=== PATIENT | male | born 1970 | race African-American/Black ===

== ENCOUNTER 2016-11-07 07:45 | Observation (INO) | payer BC ==
[~2016-11-07] VITALS: Ht 167.6 cm; Wt 71.3 kg
[2016-11-07] VITALS (7 sets, daily range): BP systolic 139–177; BP diastolic 63–109; PULSE 73–92; TEMP 36.7–37; O2SAT 96–99; Ht 167.6 cm; Wt 71.3 kg
[~2016-11-07 07:45] MED LIST: CYAN100020 PO; MULT-506 PO; OMEP40CA41 PO
[2016-11-07] MEDS ORDERED: ASPIRIN 81 MG CHEW PO STA (08:01)
[2016-11-07] MEDS ORDERED: NITROGLYCERIN OINT 2% 1GM PACKET EXT STA (08:01)
--- NOTE | 2016-11-07 08:08 | EMERGENCY ROOM VISIT NOTE ---
History Report prepared by Kimi: Jaida Rivera Under the Supervision of: Dr. Dieter Dias M.D. First contact with patient: 07:50 Chief Complaint: CHEST PAIN Stated Complaint: CHEST PAIN History of Present Illness The patient is a 45 year old male who presents to the Emergency Room with complaints of intermittent left sided chest pain starting a few weeks ago. He states that it feels as though "there is a spot" in his back located directly behind the chest pain. He also reports intermittent diaphoresis. 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 He has worsening pain with lifting. He does not have any worsening pain with palpation. Most of the time, the pain is relieved with resting. He currently denies any pain. He denies abdominal pain, or any other complaints. He did not take any aspirin today. He does not take any hypertension medications. He denies any history of diabetes. He is adopted and is unsure of any family history of heart disease. The patient does not regularly follow up with his PCP. The last time he was evaluated by his PCP was about 3-4 years ago. He has been smoking for the past 33 years. He smokes about a pack a day. Source of History: patient Onset: a few weeks ago Position: chest (left) Symptom Intensity: No pain currently Timing: intermittent Modifying Factors (Worsening): other (lifting) Modifying Factors (Relieving): rest Associated Symptoms: + diaphoresis, No abdominal pain Review of Systems See HPI for pertinent positives & negatives. A total of 10 systems reviewed and were otherwise negative. Past Medical & Surgical Medical Problems: (1) Abdominal pain (2) Back pain (3) Hyperlipidemia Nec/Nos (4) Pure Hypercholesterolem (5) Pure Hyperglyceridemia Family History Not obtainable due to adoption Social History Smoking Status: Current Every Day Smoker Alcohol Use: occasionally Marital Status: single Occupation Status: employed Current/Historical Medications Scheduled Multivitamin (Multivitamin), 1 TAB PO DAILY Naproxen (Aleve), 220 MG PO DIRECTED Allergies Coded Allergies: No Known Allergies (Unverified , 11/07/16) Physical Exam Vital Signs Date Time Temp Pulse Resp B/P (MAP) Pulse Ox O2 Delivery O2 Flow Rate FiO2 11/07/16 09:32 102 14 153/107 99 Room Air 11/07/16 08:22 95 13 157/123 99 Room Air 11/07/16 08:11 95 19 203/140 98 Room Air 11/07/16 08:10 98 Room Air 11/07/16 08:10 98 Room Air 11/07/16 07:56 107 11/07/16 07:54 36.9 116 25 203/140 100 Room Air 11/07/16 07:54 100 Room Air Physical Exam GENERAL: Patient is a healthy-appearing well-nourished HEAD: Normocephalic atraumatic EYES: Ocular movements intact pupils equal and react to light OROPHARYNX mucous membranes are moist no exudates present no erythema or edema present NECK: Supple no nuchal rigidity CHEST: Good equal expansion. Grossly hypertensive. LUNGS: Clear and equal to auscultation CARDIAC: Normal S1 and S2 ABDOMEN: Soft nontender no guarding BACK: No CVA tenderness EXTREMITIES: No pain upon palpation normal muscle strength in all groups no clubbing cyanosis or edema NEURO: Patient is following commands and answering questions appropriately. Alert and oriented x3 Cranial Nerves 2-12 grossly intact Medical Decision & Procedures ER Provider Diagnostic Interpretation: X-ray results as stated below per interpretation by me and the radiologist: CHEST ONE VIEW PORTABLE CLINICAL HISTORY: 45 years-old Male presenting with CHEST PAIN. TECHNIQUE: Portable upright AP view of the chest was obtained. COMPARISON: 09/27/2014. FINDINGS: Cardiomediastinal silhouette normal. Lungs and pleural spaces clear. Osseous structures and upper abdomen normal. IMPRESSION: 1. No acute cardiopulmonary disease. Electronically signed by: Tim Whitaker 11/07/2016 8:19 AM Dictated Date/Time: 11/07/2016 8:18 AM Laboratory Results 11/07/16 08:00 Red Blood Count 4.59, Mean Corpuscular Volume 95.4, Mean Corpuscular Hemoglobin 33.8, Mean Corpuscular Hemoglobin Concent 35.4, Mean Platelet Volume 9.4, Neutrophils (%) (Auto) 42.0, Lymphocytes (%) (Auto) 44.9, Monocytes (%) (Auto) 8.7, Eosinophils (%) (Auto) 3.3, Basophils (%) (Auto) 0.9, Neutrophils # (Auto) 2.80, Lymphocytes # (Auto) 2.99, Monocytes # (Auto) 0.58, Eosinophils # (Auto) 0.22, Basophils # (Auto) 0.06 11/07/16 08:00 11/07/16 08:50 Test 11/07/16 08:00 11/07/16 08:50 White Blood Count 6.66 K/uL (4.8-10.8) Red Blood Count 4.59 M/uL (4.7-6.1) Hemoglobin 15.5 g/dL (14.0-18.0) Hematocrit 43.8 % (42-52) Mean Corpuscular Volume 95.4 fL (80-100) Mean Corpuscular Hemoglobin 33.8 pg (25-34) Mean Corpuscular Hemoglobin Concent 35.4 g/dl (32-36) Platelet Count 114 K/uL (130-400) Mean Platelet Volume 9.4 fL (7.4-10.4) Neutrophils (%) (Auto) 42.0 % Lymphocytes (%) (Auto) 44.9 % Monocytes (%) (Auto) 8.7 % Eosinophils (%) (Auto) 3.3 % Basophils (%) (Auto) 0.9 % Neutrophils # (Auto) 2.80 K/uL (1.4-6.5) Lymphocytes # (Auto) 2.99 K/uL (1.2-3.4) Monocytes # (Auto) 0.58 K/uL (0.11-0.59) Eosinophils # (Auto) 0.22 K/uL (0-0.5) Basophils # (Auto) 0.06 K/uL (0-0.2) RDW Standard Deviation 43.3 fL (36.4-46.3) RDW Coefficient of Variation 12.4 % (11.5-14.5) Immature Granulocyte % (Auto) 0.2 % Immature Granulocyte # (Auto) 0.01 K/uL (0.00-0.02) D-Dimer 320 ug/L FEU (0-500) Anion Gap 13.0 mmol/L (3-11) Est Creatinine Clear Calc Drug Dose 95.5 ml/min Estimated GFR () 120.5 Estimated GFR (Non- 104.0 BUN/Creatinine Ratio 10.1 (10-20) Calcium Level 9.1 mg/dl (8.5-10.1) Total Bilirubin 0.4 mg/dl (0.2-1) Alanine Aminotransferase (ALT/SGPT) 134 U/L (12-78) Alkaline Phosphatase 91 U/L (45-117) Creatine Kinase MB 1.3 ng/ml (0.5-3.6) Creatine Kinase MB Ratio (0-3.0) Troponin I < 0.015 ng/ml (0-0.045) Total Protein 8.2 gm/dl (6.4-8.2) Albumin 4.2 gm/dl (3.4-5.0) Lipase 236 U/L (73-393) Direct Bilirubin < 0.1 mg/dl (0-0.2) Aspartate Amino Transf (AST/SGOT) 113 U/L (15-37) Total Creatine Kinase 281 U/L (39-308) Labs reviewed by ED physician. Medications Administered Medications (Trade) Dose Ordered Sig/Yung Route Start Time Stop Time Status Last Admin Dose Admin Aspirin (Aspirin Chew) 324 mg NOW STAT PO 11/07/16 08:01 11/07/16 08:03 DC 11/07/16 08:19 324 MG Nitroglycerin (Nitroglycerin 2% Oint) 1 inch NOW STAT EXT 11/07/16 08:01 11/07/16 08:03 DC 11/07/16 08:19 1 INCH ECG Indication: chest pain Rate (beats per minute): 98 Rhythm: sinus rhythm Findings: PVC, no acute ischemic change, prolonged QT Comparison ECG Date: March 06, 2004 Change: no significant change ED Course 0750: Past medical records reviewed. The patient was evaluated in room A10. A complete history and physical examination was performed. 0801: Nitroglycerin 1 inch EXT, Aspirin 324 mg PO 0841: I reevaluated the patient. He denies any changes in his pain but his blood pressure decreased with the Nitro. 0930: Upon reexamination the patient is resting comfortably. I discussed results and treatment plan with the patient. He verbalizes agreement and understanding. I spoke with Dr. Guzman from the [facility] Hospitalist Service. The patient will be evaluated for further management. Medical Decision Differential diagnosis: Etiologies such as cardiac ischemia, aortic dissection, pulmonary embolism, pneumonia, pneumothorax, musculoskeletal, infections, pericarditis, myocarditis , esophageal rupture, gastrointestinal, as well as others were entertained. Medication Reconciliation: I attest that I have personally reviewed the patient' s current medication list Blood Pressure Screening: Patient was found to have an elevated blood pressure and was referred to their primary care doctor for recheck and further treatment History: Slightly suspicious (0) Moderately suspicious (+1) Highly suspicious (+2) EKG: No ST depression but LBBB, LVH, repolarization changes +[address] depression +2 Age: <45 (0) 45-65 (+1) >65 (+2) Risk factors HTN, hypercholesterolemia, DM, obesity (BMI >30 kg/m), smoking, Positive family hx; atherosclerotic disease: prior PR, PCI/CABG, CVA/TIA or peripheral artery disease 1-2 risk factors +1 >3 risk factors: +2 Initial Troponin: 1-2x normal limit:+1 >2 normal limit =2 Clinical Signs and Symptoms of DVT +3 PE Is #1 Diagnosis, or Equally Likely +3 Heart Rate > 100 +1.5 Immobilization at least 3 days, or Surgery in the Previous 4 weeks +1.5 Previous, objectively diagnosed PE or DVT +1.5 Hemoptysis +1 Malignancy w/ Treatment within 6 mo, or palliative +1 Exogenous estrogen This is a 45-year-old male who presents emergency department complaining of chest pain that appears to be exertionally related over the past several weeks. The patient has a history of hypercholesterolemia and is extremely hypertensive upon his presentation to the emergency department. He also smokes a pack a day for the past 30 years. He has a moderately high heart score without knowing his past family history as he is adopted. Based on these findings and the fact that the patient's blood pressure improved dramatically with nitroglycerin I did discuss the case with the hospitalist service. The patient's d-dimer is negative and according to the well's criteria I believe he is low risk for PE. Patient and are in agreement with the treatment plan. Consults Time Called: [phone] Consulting Physician: Dr. Guzman from the [facility] Hospitalist Service Returned Call: [phone] Guzman from the [facility] Hospitalist Service. Impression Primary Impression: Substernal precordial chest pain Additional Impression: Hypertension Scribe Attestation The scribe's documentation has been prepared under my direction and personally reviewed by me in its entirety. I confirm that the note above accurately reflects all work, treatment, procedures, and medical decision making performed by me. Departure Information Dispostion Being Evaluated By Hospitalist Referrals No Doctor, Assigned (PCP) Patient Instructions My [facility] Problem Qualifiers
[2016-11-07] MEDS ORDERED: NAPR1TAB9 PO (08:12)
[2016-11-07 08:13] LABS: BASO % 0.9 %; BASO ABS # 0.06 K/uL (0-0.2); COMPLETE YES; EOS % 3.3 %; HEMATOCRIT 43.8 % (42-52); IG% 0.2 %; LYMPH % 44.9 %; LYMPH ABS # 2.99 K/uL (1.2-3.4); MEAN CELL VOLUME 95.4 fL (80-100); MEAN CORPUSCULAR HEMOGLOBIN 33.8 pg (25-34); MEAN CORPUSCULAR HGB CONC 35.4 g/dl (32-36); MEAN PLATELET VOLUME 9.4 fL (7.4-10.4); MONO % 8.7 %; PLATELET COUNT 114 K/uL (130-400); RED BLOOD COUNT 4.59 M/uL (4.7-6.1); WHITE BLOOD COUNT 6.66 K/uL (4.8-10.8)
[2016-11-07] MEDS ORDERED: NITROGLYCERIN OINT 2% 1GM PACKET ONE (08:16)
--- NOTE | 2016-11-07 08:21 | DIAGNOSTIC IMAGING REPORT ---
CHEST ONE VIEW PORTABLE CLINICAL HISTORY: 45 years-old Male presenting with CHEST PAIN. TECHNIQUE: Portable upright AP view of the chest was obtained. COMPARISON: 09/27/2014. FINDINGS: Cardiomediastinal silhouette normal. Lungs and pleural spaces clear. Osseous structures and upper abdomen normal. IMPRESSION: 1. No acute cardiopulmonary disease. Electronically signed by: Tim Whitaker 11/07/2016 8:19 AM Dictated Date/Time: 11/07/2016 8:18 AM
[2016-11-07 08:45] LABS: ALKALINE PHOSPHATASE 91 U/L (45-117); ALT/SGPT 134 U/L (12-78); BLOOD UREA NITROGEN 9 mg/dl (7-18); BUN/CREATININE RATIO 10.1 (10-20); CALCIUM 9.1 mg/dl (8.5-10.1); CARBON DIOXIDE 22 mmol/L (21-32); CHLORIDE 104 mmol/L (98-107); CREATININE 0.89 mg/dl (0.60-1.40); GLUCOSE 92 mg/dl (70-99); SODIUM 139 mmol/L (136-145)
[2016-11-07 09:21] LABS: POTASSIUM 3.7 mmol/L (3.5-5.1)
[2016-11-07 09:29] LABS: AST/SGOT 113 U/L (15-37)
[2016-11-07] MEDS ORDERED: ATORVASTATIN 40 MG TAB PO STA (10:01)
[2016-11-07] MEDS ORDERED: POTASSIUM CHLORIDE 10 MEQ TABCR PO STA (10:12)
[2016-11-07] MEDS ORDERED: ACETAMINOPHEN 325 MG TAB PO PRN (10:15)
[2016-11-07] MEDS ORDERED: MoRPHine SULFATE 2 MG/ML CARP IV PRN (10:15)
[2016-11-07] MEDS ORDERED: NITROGLYCERIN 0.4 MG SL PER TAB CHARGE SL PRN (10:15)
[2016-11-07 10:25] LABS: INR 0.9 (0.9-1.1)
[2016-11-07] MEDS ORDERED: HEPARIN 25000 UNIT/500 ML D5W ONE (10:29)
[2016-11-07] MEDS ORDERED: HEPARIN SOD 5000 UNIT/0.5 ML CARP ONE (10:30)
[2016-11-07 10:34] LABS: MAGNESIUM 1.9 mg/dl (1.8-2.4)
--- NOTE | 2016-11-07 10:37 | History and Physical ---
History & Physical Date & Time of Service: Nov 07, 2016 at 10:19 Chief Complaint: Chest Pain Primary Care Physician: No Doctor, Assigned History of Present Illness Source: patient Mr Price is a pleasant 45 year old male current smoker, alcohol use disorder and no routine medical care who presents to the ER with worsening chest and left arm pain/change in sensation. Initial symptoms started 5-6 weeks ago. Intermittent chest discomfort. Occasional associated shortness of breath, increased sputum cough, diaphoresis and nausea. Last 2 days increased frequency of symptoms. This morning he woke up with new onset left arm numbness and tingling in his arm and hand so he decided to come to the ER for further evaluation. He receives no routine medical care. Past Medical/Surgical History Medical Problems: (1) Abdominal pain Status: Resolved (2) Back pain Status: Resolved Family History Not obtainable due to adoption Social History Smoking Status: Current Every Day Smoker (1 pack/day for 33 years) Alcohol Use: heavy Marital Status: single Occupational Status: employed Multi-Drug Resistant Organisms History of MDRO: No Allergies Coded Allergies: No Known Allergies (Unverified , 11/07/16) Home Medications Scheduled Aspirin (Aspirin EC Low Dose), 81 MG PO QAM Gemfibrozil (Lopid), 1 TAB PO BID Metoprolol Tartrate (Lopressor), 25 MG PO BID Multivitamin (Multivitamin), 1 TAB PO DAILY Nicotine (Nicoderm Cq 21MG Patch), 1 PATCH TD DAILY Review of Systems Constitutional: No fever, No chills Eyes: No worsening of vision ENT: No hearing loss Respiratory: + cough, + sputum, No wheezing, No shortness of breath Cardiovascular: + chest pain, No orthopnea, No PND, No edema, No claudication, No palpitations Abdomen: No pain, No nausea, No vomiting, No diarrhea, No constipation, No GI bleeding Musculoskeletal: No joint pain, No muscle pain Genitourinary - Male: No hematuria, No dysuria, No urinary frequency Endocrine: No fatigue, No excessive thirst, No excessive urination Hematologic / Lymphatic: No abnormal bleeding/bruising Integumentary: + rash (on lower legs present for years (slowly healing non painful nodules)), No itch Physical Exam Vital Signs Date Time Temp Pulse Resp B/P (MAP) Pulse Ox O2 Delivery O2 Flow Rate FiO2 11/07/16 09:32 102 14 153/107 99 Room Air 11/07/16 09:23 99 Room Air 11/07/16 08:22 95 13 157/123 99 Room Air 11/07/16 08:11 95 19 203/140 98 Room Air 11/07/16 08:10 98 Room Air 11/07/16 08:10 98 Room Air 11/07/16 07:56 107 11/07/16 07:54 36.9 116 25 203/140 100 Room Air 11/07/16 07:54 100 Room Air General Appearance: WD/WN, no apparent distress Head: normocephalic, atraumatic Eyes: normal inspection, PERRL, EOMI Neck: no adenopathy, no JVD, no carotid bruits, trachea midline Respiratory/Chest: chest non-tender, lungs clear, normal breath sounds, no respiratory distress, no accessory muscle use Cardiovascular: no JVD, no murmur, + tachycardia (regular rhythm) Abdomen/GI: normal bowel sounds, non tender, soft Back: no CVA tenderness Extremities/Musculoskelatal: normal inspection, no pedal edema Neurologic/Psych: rock mason II-XII nml as tested, no motor/sensory deficits, alert, normal mood/affect, oriented x 3 Skin: + rash (for years he has had multiple small non-painful nodules at different stages of healing on both legs) Diagnostics Laboratory Results Results Past 24 Hours Test 11/07/16 08:00 11/07/16 08:50 11/07/16 10:01 Range/Units White Blood Count 6.66 4.8-10.8 K/uL Red Blood Count 4.59 4.7-6.1 M/uL Hemoglobin 15.5 14.0-18.0 g/dL Hematocrit 43.8 42-52 % Mean Corpuscular Volume 95.4 80-100 fL Mean Corpuscular Hemoglobin 33.8 25-34 pg Mean Corpuscular Hemoglobin Concent 35.4 32-36 g/dl Platelet Count 114 130-400 K/uL Mean Platelet Volume 9.4 7.4-10.4 fL Neutrophils (%) (Auto) 42.0 % Lymphocytes (%) (Auto) 44.9 % Monocytes (%) (Auto) 8.7 % Eosinophils (%) (Auto) 3.3 % Basophils (%) (Auto) 0.9 % Neutrophils # (Auto) 2.80 1.4-6.5 K/uL Lymphocytes # (Auto) 2.99 1.2-3.4 K/uL Monocytes # (Auto) 0.58 0.11-0.59 K/uL Eosinophils # (Auto) 0.22 0-0.5 K/uL Basophils # (Auto) 0.06 0-0.2 K/uL RDW Standard Deviation 43.3 36.4-46.3 fL RDW Coefficient of Variation 12.4 11.5-14.5 % Immature Granulocyte % (Auto) 0.2 % Immature Granulocyte # (Auto) 0.01 0.00-0.02 K/uL D-Dimer 320 0-500 ug/L FEU Sodium Level 139 136-145 mmol/L Potassium Level 3.7 3.5-5.1 mmol/L Chloride Level 104 98-107 mmol/L Carbon Dioxide Level 22 21-32 mmol/L Anion Gap 13.0 3-11 mmol/L Blood Urea Nitrogen 9 7-18 mg/dl Creatinine 0.89 0.60-1.40 mg/dl Est Creatinine Clear Calc Drug Dose 95.5 ml/min Estimated GFR () 120.5 Estimated GFR (Non- 104.0 BUN/Creatinine Ratio 10.1 10-20 Random Glucose 92 70-99 mg/dl Calcium Level 9.1 8.5-10.1 mg/dl Total Bilirubin 0.4 0.2-1 mg/dl Direct Bilirubin < 0.1 0-0.2 mg/dl Aspartate Amino Transf (AST/SGOT) 113 15-37 U/L Alanine Aminotransferase (ALT/SGPT) 134 12-78 U/L Alkaline Phosphatase 91 45-117 U/L Total Creatine Kinase 281 39-308 U/L Creatine Kinase MB 1.3 0.5-3.6 ng/ml Creatine Kinase MB Ratio 0-3.0 Troponin I < 0.015 0-0.045 ng/ml Total Protein 8.2 6.4-8.2 gm/dl Albumin 4.2 3.4-5.0 gm/dl Lipase 236 73-393 U/L Diagnostic Radiology CHEST ONE VIEW PORTABLE CLINICAL HISTORY: 45 years-old Male presenting with CHEST PAIN. TECHNIQUE: Portable upright AP view of the chest was obtained. COMPARISON: 09/27/2014. FINDINGS: Cardiomediastinal silhouette normal. Lungs and pleural spaces clear. Osseous structures and upper abdomen normal. IMPRESSION: 1. No acute cardiopulmonary disease. Electronically signed by: Tim Whitaker 11/07/2016 8:19 AM Dictated Date/Time: 11/07/2016 8:18 AM EKG NSR with occasional PVC Possible LVH Impression Assessment and Plan 45 year old male smoker and alcohol use disorder presents with chest pain and left hand tingling Suspected NSTE-ACS with ongoing symptoms - ASA already given, clopidogrel (deferred to cardiology) - metoprolol 5mg IV x3 15 minutes apart for anti-anginal, HTN and tachycardia - ACEi deferred at this stage due to unconfirmed VA - Atorvastatin 80mg stat and then daily - Start heparin low dose with bolus - Serial troponin, fasting lipids, defer HbA1C given normal glucose - Echo - Consult cardiology - discussed with Dr Edwards at 11:45am after echocardiogram performed Elevated transaminitis - US liver, likely secondary to alcohol consumption but Alcohol use disorder - YAS score QS, will defer any alcohol withdrawal medications at present given lack of symptoms Tobacco use disorder - defer nicotine patch to avoid vessel constriction unless he desperately needs this Code - Full VTE Prophylaxis - on treatment dose heparin Disposition - observation status (as not yet confirmed VA) on telemetry. Will switch to admission status if subsequent troponin positive Level of Care Telemetry Advanced Directives Existing Living Will: No Existing Power of Weigher And Crusher: No Resuscitation Status FULL RESUSCITATION VTE Prophylaxis VTE Risk Assessment Done? Y/N: Yes Risk Level: Low Given or contraindicated: Other Anticoagulation Resident Tracking Resident Involvement: Resident Care Provided Care Provided: Adult [facility] Medicine Assessment and Plan Attending Addendum: I physically seen and examined this patient, have supervised the medical residents activities, and agree with the H&P as noted above with the following exceptions: NONE The patient is awake, well-developed and adequately nourished, alert and oriented 3, normocephalic and atraumatic, lying in bed and in no acute distress. HEENT--PERRL, EOMI, mucous membranes and oropharynx dry. Neck--supple, no JVD or bruits, thyroid normal, trachea midline, no adenopathy. Heart--normal S1 and S2, no extra beats, no murmurs, rubs or gallops. Lungs--clear bilaterally with good air movement, no respiratory distress, no accessory muscle use. Abdomen--normal bowel sounds and soft, nontender and nondistended, no hernias or masses, no organomegaly. Extremities--no cyanosis, clubbing or edema. There are good distal pulses b/l. Dermatologic--normal skin turgor, normal color, warm and dry, no abnormal lymph nodes, no rash. Neurologic--cranial nerves II through XII grossly intact. Rheumatologic--normal range of motion, nontender, muscles and joints. Psychiatric--normal affect. Assessment and Plan: 1. Acute coronary syndrome/hypertensive urgency--the patient will be admitted to the telemetry unit for serial cardiac enzymes, cardiac rhythm monitoring and a 2-D echocardiogram with Dopplers. The patient was given Lopressor 5mg IV every 5 minutes 3, which was ultimately able to bring his blood pressure down into more normal zone. Continue aspirin 81 mg by mouth every morning, he has been given 324 mg by mouth in the ED. Place on metoprolol tartrate 50 mg by mouth twice a day. Nitropaste 1 inch anterior chest wall every 6 hours. We'll start heparin IV standard dose with bolus per protocol. Consult cardiology.
[2016-11-07] MEDS ORDERED: METOPROLOL TARTRATE 1 MG/ML VIAL ONE (10:39)
[2016-11-07] MEDS: SODIUM CHLORIDE 0.9% 1000ML 1,000 ML IV SCH ×2 (10:45→20:02)
[2016-11-07 10:54] LABS: CHOLESTEROL/HDL RATIO 9.6
[2016-11-07] MEDS ORDERED: METOPROLOL TARTRATE 1 MG/ML VIAL IV STA ×2 (10:59→11:00)
[2016-11-07] MEDS ORDERED: MAGNESIUM SULFATE 1GM / D5W 1 GM BAG IV STA (11:07)
--- NOTE | 2016-11-07 12:04 | Medical Student: [facility] ---
Med Student History & Physical Date & Time of Service: Nov 07, 2016 at 11:49 Chief Complaint: Chest Pain Primary Care Physician: No Doctor, Assigned History of Present Illness Source: patient, family () Mr. Price is a 45 year old male with a PMH significant for hypertriglyceridemia who presents today with worsening left sided chest discomfort. The chest pain started about 5-6 weeks ago and is worse on exertion and when sitting up. The pain is intermittent and lasts seconds to minutes. He describes the pain as sharp/stabbing in one localized spot over his medial left chest adjacent to the sternum. The pain radiates to his back and the area of pain over his back has become more diffuse over the past couple weeks. The pain has progressively worsened and the frequency of these episodes has increased. Associated symptoms include diaphoresis, occasional SOB, worsening cough, and tingling in the left hand. He denies fevers, weight loss, chills, N/V , MCCOY, blurry vision, abdominal pain, changes in bowel movements, dysuria, or weakness. At worst, the pain is a 8/10. Currently his pain is 0/10. This morning around 0630, the tingling in his left hand worsened and this is what eventually brought him to the ER. On admission, he was tachycardic at 116, tachypneic at 25 and hypertensive at 203/140. He was afebrile and sating at 100 % on RA. He was given 324 mg ASA and nitroglycerin paste with mild relief of his pain. On labs, he was found to have an elevated AST of 113 and ALT of 134. Triglycerides were 588 and total cholesterol was 376. Past Medical/Surgical History Medical Problems: (1) Hypertension Status: Acute (2) Substernal precordial chest pain Status: Acute Family History Unknown because patient is adopted Social History Smoking Status: Current Every Day Smoker (1 pack/day for 33 years) Smokeless Tobacco Use: No Alcohol Use: heavy (3-4 beers/day ) Drug Use: none Marital Status: Occupational Status: employed ([employer] ) Allergies Coded Allergies: No Known Allergies (Unverified , 11/07/16) Medications Multivitamin (Multivitamin), 1 TAB PO DAILY Naproxen (Aleve), 220 MG PO DIRECTED Review of Systems Constitutional: No fever, No chills Eyes: No worsening of vision ENT: No hearing loss Respiratory: + cough, + sputum, + shortness of breath, No wheezing, No dyspnea on exertion Cardiovascular: + chest pain, No edema, No palpitations Abdomen: No pain, No nausea, No vomiting, No diarrhea, No constipation Musculoskeletal: No joint pain, No muscle pain Genitourinary - Male: No hematuria, No dysuria, No urinary frequency Neurologic: No memory loss Endocrine: No fatigue Integumentary: + rash (b/l lower extremities ) Physical Exam Vital Signs (24 Hours) Date Time Temp Pulse Resp B/P (MAP) Pulse Ox O2 Delivery O2 Flow Rate FiO2 11/07/16 11:35 91 144/86 11/07/16 11:26 86 12 140/101 98 Room Air 11/07/16 11:13 93 140/101 11/07/16 11:07 93 14 158/93 98 Room Air 11/07/16 10:43 108 170/100 11/07/16 10:35 108 17 170/100 94 Room Air 11/07/16 10:27 106 11/07/16 09:32 102 14 153/107 99 Room Air 11/07/16 09:23 99 Room Air 11/07/16 08:22 95 13 157/123 99 Room Air 11/07/16 08:11 95 19 203/140 98 Room Air 11/07/16 08:10 98 Room Air 11/07/16 08:10 98 Room Air 11/07/16 07:56 107 11/07/16 07:54 36.9 116 25 203/140 100 Room Air 11/07/16 07:54 100 Room Air General Appearance: WD/WN, no apparent distress Head: normocephalic, atraumatic Eyes: PERRL, sclerae normal ENT: normal ENT inspection Neck: supple, no adenopathy, thyroid normal Respiratory/Chest: chest non-tender, lungs clear, normal breath sounds, no respiratory distress Cardiovascular: regular rate, rhythm, no edema, no gallop, no JVD, no murmur, normal peripheral pulses Abdomen/GI: normal bowel sounds, non tender, soft, no organomegaly Back: normal inspection Extremities/Musculoskelatal: normal inspection, no calf tenderness, normal capillary refill, no pedal edema Neurologic/Psych: management instructor II-XII nml as tested, + sensory deficit (tingling L distal digits (1-5) ), + pertinent finding (spurling test negative ) Skin: + rash (nodules of varying degrees of healing on b/l lower extremities ) Diagnostics Laboratory Results Results Past 24 Hours Test 11/07/16 08:00 11/07/16 08:50 11/07/16 10:57 Range/Units White Blood Count 6.66 4.8-10.8 K/uL Red Blood Count 4.59 4.7-6.1 M/uL Hemoglobin 15.5 14.0-18.0 g/dL Hematocrit 43.8 42-52 % Mean Corpuscular Volume 95.4 80-100 fL Mean Corpuscular Hemoglobin 33.8 25-34 pg Mean Corpuscular Hemoglobin Concent 35.4 32-36 g/dl Platelet Count 114 130-400 K/uL Mean Platelet Volume 9.4 7.4-10.4 fL Neutrophils (%) (Auto) 42.0 % Lymphocytes (%) (Auto) 44.9 % Monocytes (%) (Auto) 8.7 % Eosinophils (%) (Auto) 3.3 % Basophils (%) (Auto) 0.9 % Neutrophils # (Auto) 2.80 1.4-6.5 K/uL Lymphocytes # (Auto) 2.99 1.2-3.4 K/uL Monocytes # (Auto) 0.58 0.11-0.59 K/uL Eosinophils # (Auto) 0.22 0-0.5 K/uL Basophils # (Auto) 0.06 0-0.2 K/uL RDW Standard Deviation 43.3 36.4-46.3 fL RDW Coefficient of Variation 12.4 11.5-14.5 % Immature Granulocyte % (Auto) 0.2 % Immature Granulocyte # (Auto) 0.01 0.00-0.02 K/uL Prothrombin Time 10.0 9.0-12.0 SECONDS Prothromb Time International Ratio 0.9 0.9-1.1 Activated Partial Thromboplast Time 26.4 21.0-31.0 SECONDS Partial Thromboplastin Ratio 1.0 D-Dimer 320 0-500 ug/L FEU Sodium Level 139 136-145 mmol/L Potassium Level 3.7 3.5-5.1 mmol/L Chloride Level 104 98-107 mmol/L Carbon Dioxide Level 22 21-32 mmol/L Anion Gap 13.0 3-11 mmol/L Blood Urea Nitrogen 9 7-18 mg/dl Creatinine 0.89 0.60-1.40 mg/dl Est Creatinine Clear Calc Drug Dose 95.5 ml/min Estimated GFR () 120.5 Estimated GFR (Non- 104.0 BUN/Creatinine Ratio 10.1 10-20 Random Glucose 92 70-99 mg/dl Calcium Level 9.1 8.5-10.1 mg/dl Total Bilirubin 0.4 0.2-1 mg/dl Direct Bilirubin < 0.1 0-0.2 mg/dl Aspartate Amino Transf (AST/SGOT) 113 15-37 U/L Alanine Aminotransferase (ALT/SGPT) 134 12-78 U/L Alkaline Phosphatase 91 45-117 U/L Total Creatine Kinase 281 39-308 U/L Creatine Kinase MB 1.3 0.5-3.6 ng/ml Creatine Kinase MB Ratio 0-3.0 Troponin I < 0.015 0-0.045 ng/ml Total Protein 8.2 6.4-8.2 gm/dl Albumin 4.2 3.4-5.0 gm/dl Lipase 236 73-393 U/L Magnesium Level 1.9 1.8-2.4 mg/dl Triglycerides Level 588 0-150 mg/dl Cholesterol Level 376 0-200 mg/dl HDL Cholesterol 39 mg/dl LDL Cholesterol, Calculated mg/dl VLDL Cholesterol, Calculated mg/dl Cholesterol/HDL Ratio 9.6 Chemistry Specimen Hemolysis Diagnostic Radiology CXR 11/07/2016 CHEST ONE VIEW PORTABLE CLINICAL HISTORY: 45 years-old Male presenting with CHEST PAIN. TECHNIQUE: Portable upright AP view of the chest was obtained. COMPARISON: 09/27/2014. FINDINGS: Cardiomediastinal silhouette normal. Lungs and pleural spaces clear. Osseous structures and upper abdomen normal. IMPRESSION: 1. No acute cardiopulmonary disease. Impression Assessment and Plan Assessment: Mr. Price is a 45 year old male with a PMH significant for hypertriglyceridemia who presents today with worsening left sided chest discomfort of 5-6 weeks duration that radiates to his back and worsening left hand tingling. Differential for this chest pain includes NSTE-ACS, NSTEMI, STEMI , pericarditis and endocarditis, PE, pneumonia, pneumothorax, aortic dissection or aneurysm, pleural effusion, GERD, costochondritis, and radiculopathy of thoracic spine. An autoimmune vasculitis is also considered because of the nodules found on his lower extremities. Initial EKG on admission showed PVCs and possible LVH, but serial EKGs showed no dynamic changes or evidence of ischemia. Troponin-I at 0800 was <0.015. EKG and troponin-I rule out NSTEMI or STEMI at this time. CXR showed no acute cardiopulmonary disease with no mediastinal widening, pneumothorax, consolidation or effusions. This rules out pneumonia, aortic dissection/aneurysm, pneumothorax and pleural effusion. Also distal pulses were equal bilaterally which suggests against dissection as well. D dimer was normal at 320, which rules out PE. On physical exam, the patient was not tender to palpation of the chest, which suggests against costchondritis. The chest pain is thus likely NSTE-ACS considering EKG findings. Whether this is unstable angina or NSTEMI will be determined by serial troponin-I levels. The left hand tingling is most likely 2/2 to the ACS, but stroke, cervical radiculopathy and peripheral neuropathy need to be considered. It is unlikely stroke considering neuro examination showed no focal deficits. It is also unlikely cervical radiculopathy considering spurling test was negative and peripheral neuropathy is unlikely as well considering all 5 digits (C6-C8) are involved and the distribution is not consistent with ulnar or medial regions. Plan: 1) Suspected NSTE-ACS -324 mg ASA already given, continue 81 mg ASA PO daily -consider Plavix if intervention is not warranted -metoprolol 5 mg IV x 3 every 15 minutes for anti-anginal, HTN, and tachycardia , followed by metoprolol 25 mg PO BID -UF IV Heparin low dose with bolus, PTT tmr AM -Atorvastatin 80 mg PO daily -Echo to evaluate for evidence of ischemia or cardiomyopathy -consider RAJAN-I if EF <40% on echo or HTN not well controlled with metoprolol -serial troponin-I, fasting lipids -daily CBC and CMP -consult cardiology 2) PVCs on EKG -Mg 1.9, potassium 3.7 -keep Mg >2 and K >4 with MgSO4 and KCl 3) Transaminitis - possibly related to alcohol use -AST 113 and ALT 134 -consider liver US, especially with initiation of statin 4) Dyslipidemia - TRIG 588 & total cholesterol 376 -start atorvastatin 80 mg PO daily Advanced Directives Existing Living Will: No Existing Power of Isotope Technician: No
[2016-11-07] MEDS ORDERED: IV FLUIDS COMPLETED PRN (12:15)
--- NOTE | 2016-11-07 13:44 | DIAGNOSTIC IMAGING REPORT ---
Right upper quadrant ultrasound (LIVER) ABDOMEN LIMITED CLINICAL HISTORY: elevated transaminitis increased liver enzymes TECHNIQUE: Ultrasound COMPARISON STUDY: 06/10/2012 FINDINGS: Fatty infiltration of liver. Small amount of gallbladder sludge. No shadowing gallstones. Common bile duct 5 mm. Pancreas is poorly seen overlying bowel content. Right kidney is negative for hydronephrosis. IMPRESSION: Small amount of gallbladder sludge. Fatty infiltration of liver. Normal caliber bile duct. Electronically signed by: Chris Aguiar M.D. 11/07/2016 1:42 PM Dictated Date/Time: 11/07/2016 1:41 PM
[2016-11-07] MEDS ORDERED: HEPARIN 25,000 UNIT/500ML D5W 500 ML IV PRN (13:45)
--- NOTE | 2016-11-07 15:51 | ECHOCARDIOGRAM REPORT ---
*NOTICE TO RECEIVING DEMOCRAT AGENCY This information is strictly Confidential and protected under [place] law. [place] law prohibits you from making any further disclosure of this information unless further disclosure is expressly permitted by the written consent of the person to whom it pertains or is authorized by law. A general authorization for the release of medical or other information is not sufficient for this purpose. Hospital accepts no responsibility if the information is made available to any other person, INCLUDING THE PATIENT. Interpretation Summary * Name: LINDA MÁRQUEZ Study Date: 11/07/2016 10:46 AM BP: 139/72 mmHg * Patient Location: [facility].ED HR: 103 * : 1970 (M/d/yyyy) Gender: Male Height: 66 in * Age: 45 yrs Ethnicity: AA Weight: 165 lb * Ordering Physician: RUBI INFANTE MD * Performed By: Krissy Turcios RCS * * Reason For Study: CHEST PAIN * BSA: 1.8 m2 * -- Conclusions -- * 1. Normal LV size. Borderline LV wall thickness. * 2. Normal LV funciton. LVEF 55-60%. No regional wall motion abnormalities. * 3. Normal RV size and function. * 4. No significant valvular pathology. * 5. No prior studies for comparison. Procedure Details * A complete two-dimensional transthoracic echocardiogram was performed (2D, M-mode, Doppler and color flow Doppler). Left Ventricle * The left ventricle is grossly normal size. * There is borderline concentric left ventricular hypertrophy. * Ejection Fraction = 55-60%. * No regional wall motion abnormalities noted. Right Ventricle * The right ventricle is grossly normal size. * The right ventricular systolic function is normal as assessed by tricuspid annular plane systolic excursion (TAPSE) (normal >1.5 cm). Atria * Borderline left atrial enlargement. * Right atrial size is normal. * No ASD detected; PFO is not assessed. Mitral Valve * The mitral valve is grossly normal. * Mitral stenosis is absent. * Significant mitral regurgitation is absent. Tricuspid Valve * The tricuspid valve is not well visualized, but is grossly normal. * There is trace tricuspid regurgitation. Aortic Valve * The aortic valve opens well. * The aortic valve is trileaflet. * No hemodynamically significant valvular aortic stenosis. * There is no significant aortic regurgitation. Pulmonic Valve * The pulmonary valve is inadequately visualized, but the Doppler data is adequate for interpretation. * Pulmonic stenosis is absent. * There is no significant pulmonary regurgitation. Great Vessels * The aortic root and proximal ascending aorta are normal sized. * No Doppler or imaging evidence of an aortic coarctation. Pericardium/Pleural * There is no pericardial effusion. MMode 2D Measurements and Calculations IVSd 1.1 cm IVSs 1.5 cm LVIDd 4.7 cm LVIDs 3.5 cm LVPWd 1.2 cm LVPWs 1.4 cm IVS/LVPW 0.95 FS 25.6 % EDV(Teich) 101.1 ml ESV(Teich) 50.2 ml EF(Teich) 50.4 % EDV(cubed) 102.2 ml ESV(cubed) 42.2 ml EF(cubed) 58.7 % % IVS thick 39.0 % % LVPW thick 23.8 % LV mass(C)d 191.7 grams LV mass(C)dI 104.0 grams/m\S\2 LV mass(C)s 186.8 grams LV mass(C)sI 101.4 grams/m\S\2 SV(Teich) 50.9 ml SI(Teich) 27.6 ml/m\S\2 SV(cubed) 60.1 ml SI(cubed) 32.6 ml/m\S\2 Ao root diam 3.0 cm Ao root area 7.1 cm\S\2 ACS 2.1 cm LA dimension 3.9 cm LA/Ao 1.3 LVOT diam 1.8 cm LVOT area 2.5 cm\S\2 LVAd ap4 33.7 cm\S\2 LVLd ap4 8.7 cm EDV(MOD-sp4) 106.7 ml EDV(sp4-el) 110.6 ml LVAs ap4 21.1 cm\S\2 LVLs ap4 7.2 cm ESV(MOD-sp4) 52.5 ml ESV(sp4-el) 52.6 ml EF(MOD-sp4) 50.8 % EF(sp4-el) 52.4 % LVAd ap2 11.4 cm\S\2 LVLd ap2 4.2 cm EDV(MOD-sp2) 24.0 ml EDV(sp2-el) 26.2 ml LVAs ap2 8.1 cm\S\2 LVLs ap2 4.0 cm ESV(MOD-sp2) 12.5 ml ESV(sp2-el) 13.7 ml EF(MOD-sp2) 48.0 % EF(sp2-el) 47.6 % LVLd %diff -107.60 % EDV(MOD-bp) 65.4 ml LVLs %diff -79.40 % ESV(MOD-bp) 30.9 ml EF(MOD-bp) 52.8 % SV(MOD-sp4) 54.2 ml SI(MOD-sp4) 29.4 ml/m\S\2 SV(MOD-sp2) 11.5 ml SI(MOD-sp2) 6.2 ml/m\S\2 SV(MOD-bp) 34.6 ml SI(MOD-bp) 18.7 ml/m\S\2 SV(sp4-el) 58.0 ml SI(sp4-el) 31.5 ml/m\S\2 SV(sp2-el) 12.4 ml SI(sp2-el) 6.8 ml/m\S\2 Doppler Measurements and Calculations MV E max maría 60.4 cm/sec MV A max maría 78.2 cm/sec MV E/A 0.77 MV P1/2t max maría 78.9 cm/sec MV P1/2t 70.5 msec MVA(P1/2t) 3.1 cm\S\2 MV dec slope 327.6 cm/sec\S\2 MV dec time 0.19 sec Ao V2 max 123.6 cm/sec Ao max PG 6.1 mmHg Ao max PG (full) 2.2 mmHg HUE(V,A) 2.0 cm\S\2 HUE(V,D) 2.0 cm\S\2 LV V1 max PG 3.9 mmHg LV V1 max 99.2 cm/sec PA V2 max 135.4 cm/sec PA max PG 7.3 mmHg
--- NOTE | 2016-11-07 15:54 | Cardiology Consultation ---
Cardiology Consultation Date of Consultation: Nov 07, 2016. Requesting Physician: Nicolas Cazares Reason for Consultation: Chest pain Pt evaluation today including: conversation w/ patient, physical exam, chart review, lab review, review of studies, conversation w/ attending History of Present Illness Patient is a 45-year-old gentleman without a known history of cardiac disease who has been experiencing symptoms of chest discomfort for several weeks. Patient reports this discomfort is present in the xiphoid portion of his chest. It is intermittently described as both a pressure sensation and a sharp pain. He states that this is most common with certain movements of the chest including extension of his arms. The symptoms generally last a minute or last. Occasionally they are quite fleeting and lasting only seconds. He states that over the past few weeks the symptoms have become more frequent and more intense. He has had very few extended episodes of discomfort. The symptoms are generally not associated with exertion but on occasion can be present. There is a very mild pleuritic component but this is not a prominent feature of his symptoms. Generally speaking he does not have radiation of the pain to any other portion of his body. The symptoms do not involve the arm. He has some mild associated breathing difficulty, but this is fairly chronic in nature. He states that generally speaking he is mildly dyspneic but lately he feels this is more significant. This morning the patient awoke and had some paresthesias involving the left forearm and hand. This was described as pins and needles. This was initially associated with his index chest discomfort and based on the symptoms he presented to [facility] for an evaluation. Patient was evaluated and treated in the emergency room with resolution of his chest discomfort but he continues to have some symptoms of paresthesias involving the left hand. Currently he has some pins and needles involving the finger tips of the left hand. He states that otherwise he is comfortable currently. He has no symptoms of chest discomfort at this time. He states that his breathing still feels somewhat compromised but overall he is comfortable. 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 His job involves moderate activity which she has been able to complete without new limitation. He does not perform any other form of exercise. When it comes to routine activity such as shopping or walking he has no limiting symptoms of dyspnea or chest discomfort. Family History Not obtainable due to adoption Social History Smoking Status: Current Every Day Smoker (1 pack/day for 33 years) History of Alcohol Use: Yes (BEER OR WINE 3 TO 4 DRINKS DAY ) Alcohol abuse Chronic back pain Transaminitis Hyperlipidemia Tobacco abuse Genital warts Past surgical history Oral surgery Review of Systems Constitutional: + see HPI Respiratory: + see HPI Cardiac: + see HPI Abdomen: + see HPI Male : + see HPI Neurologic: + see HPI Heme: + see HPI Endo: + see HPI Skin: + see HPI All Other Systems: Reviewed and Negative Allergies Coded Allergies: No Known Allergies (Unverified , 11/07/16) Medications Current Inpatient Medications Medications (Trade) Dose Ordered Sig/Yung Route Start Time Stop Time Status Last Admin Dose Admin Acetaminophen (Tylenol Tab) 650 mg Q4H PRN PO 11/07/16 10:15 12/07/16 10:14 Nitroglycerin (Nitrostat Tab) 0.4 mg UD PRN SL 11/07/16 10:15 12/07/16 10:14 Morphine Sulfate (MoRPHine SULFATE INJ) 2 mg Q30M PRN IV 11/07/16 10:15 11/21/16 10:14 Aspirin (Ecotrin Tab) 81 mg QAM PO 11/08/16 09:00 12/08/16 08:59 Sodium Chloride 1,000 ml @ 125 mls/hr Q8H IV 11/07/16 10:45 12/07/16 10:44 11/07/16 10:45 125 MLS/HR Miscellaneous (Iv Fluids Completed) 1 ea PRN PRN N/A 11/07/16 12:15 11/07/17 12:14 Heparin Sodium/ Dextrose 500 ml @ 16 mls/hr Q24H PRN IV 11/07/16 13:45 12/07/16 13:44 Physical Exam Vital Signs Past 12 Hours Date Time Temp Pulse Resp B/P (MAP) Pulse Ox O2 Delivery O2 Flow Rate FiO2 11/07/16 12:30 96 11/07/16 12:27 36.7 92 18 139/72 (94) 97 Room Air 11/07/16 12:18 102 16 143/94 96 11/07/16 11:35 91 144/86 11/07/16 11:26 86 12 140/101 98 Room Air 11/07/16 11:13 93 140/101 11/07/16 11:07 93 14 158/93 98 Room Air 11/07/16 10:43 108 170/100 11/07/16 10:35 108 17 170/100 94 Room Air 11/07/16 10:27 106 11/07/16 09:32 102 14 153/107 99 Room Air 11/07/16 09:23 99 Room Air 11/07/16 08:22 95 13 157/123 99 Room Air 11/07/16 08:11 95 19 203/140 98 Room Air 11/07/16 08:10 98 Room Air 11/07/16 08:10 98 Room Air 11/07/16 07:56 107 11/07/16 07:54 36.9 116 25 203/140 100 Room Air 11/07/16 07:54 100 Room Air The patient is alert and oriented. Mood and affect appeared normal. He answered all questions appropriately. HEENT: Pupils are equal and reactive to light and accommodation. Extraocular movements are intact. The sclerae are anicteric. Neuro: Cranial nerves intact Neck: Patient's neck is supple. He has palpable carotid pulses bilaterally without bruits on auscultation. There is no evidence of jugular venous distention. The thyroid is not enlarged. Lungs: Clear to auscultation bilaterally. He has good air movement without use of accessory muscles. No rales wheezes or rhonchi. Cardiac: Heart demonstrates a regular rate and rhythm. Normal S1 and S2. No murmurs on examination. Pulses: The patient has palpable radial pulses bilaterally that are equal in intensity Extremities: There was no evidence of hypoperfusion. There is no cyanosis or clubbing. There is no edema. Skin: I did not appreciate any rashes on examination today. Data Laboratory Results: Last 24 Hours Test 11/07/16 08:00 11/07/16 08:50 11/07/16 14:16 White Blood Count 6.66 K/uL Red Blood Count 4.59 M/uL Hemoglobin 15.5 g/dL Hematocrit 43.8 % Mean Corpuscular Volume 95.4 fL Mean Corpuscular Hemoglobin 33.8 pg Mean Corpuscular Hemoglobin Concent 35.4 g/dl Platelet Count 114 K/uL Mean Platelet Volume 9.4 fL Neutrophils (%) (Auto) 42.0 % Lymphocytes (%) (Auto) 44.9 % Monocytes (%) (Auto) 8.7 % Eosinophils (%) (Auto) 3.3 % Basophils (%) (Auto) 0.9 % Neutrophils # (Auto) 2.80 K/uL Lymphocytes # (Auto) 2.99 K/uL Monocytes # (Auto) 0.58 K/uL Eosinophils # (Auto) 0.22 K/uL Basophils # (Auto) 0.06 K/uL RDW Standard Deviation 43.3 fL RDW Coefficient of Variation 12.4 % Immature Granulocyte % (Auto) 0.2 % Immature Granulocyte # (Auto) 0.01 K/uL Prothrombin Time 10.0 SECONDS Prothromb Time International Ratio 0.9 Activated Partial Thromboplast Time 26.4 SECONDS Partial Thromboplastin Ratio 1.0 D-Dimer 320 ug/L FEU Sodium Level 139 mmol/L Potassium Level mmol/L 3.7 mmol/L Chloride Level 104 mmol/L Carbon Dioxide Level 22 mmol/L Anion Gap 13.0 mmol/L Blood Urea Nitrogen 9 mg/dl Creatinine 0.89 mg/dl Est Creatinine Clear Calc Drug Dose 95.5 ml/min Estimated GFR () 120.5 Estimated GFR (Non- 104.0 BUN/Creatinine Ratio 10.1 Random Glucose 92 mg/dl Calcium Level 9.1 mg/dl Total Bilirubin 0.4 mg/dl Direct Bilirubin mg/dl < 0.1 mg/dl Aspartate Amino Transf (AST/SGOT) U/L 113 U/L Alanine Aminotransferase (ALT/SGPT) 134 U/L Alkaline Phosphatase 91 U/L Total Creatine Kinase U/L 281 U/L Creatine Kinase MB 1.3 ng/ml Creatine Kinase MB Ratio Troponin I < 0.015 ng/ml < 0.015 ng/ml Total Protein 8.2 gm/dl Albumin 4.2 gm/dl Lipase 236 U/L Magnesium Level 1.9 mg/dl Triglycerides Level 588 mg/dl Cholesterol Level 376 mg/dl HDL Cholesterol 39 mg/dl LDL Cholesterol Direct 161 mg/dl LDL Cholesterol, Calculated mg/dl VLDL Cholesterol, Calculated mg/dl Cholesterol/HDL Ratio 9.6 Chemistry Specimen Hemolysis Imaging: Chest x-ray was normal EKG: EKG was normal without significant ST or T-wave changes Telemetry reviewed: Echocardiogram pending Assessment & Plan 1. Chest pain: Patient does have intermittent symptoms of chest discomfort which are atypical for coronary symptoms. The episodes themselves are fairly brief in duration, extended and associated with certain movements of the arms and chest. He certainly has risk factors for coronary disease, but there is no objective evidence of an acute coronary syndrome at this point. He has a normal EKG and normal cardiac biomarkers. Echocardiogram was obtained during symptoms and this will be reviewed for evidence of wall motion abnormalities. He has no chest pain at this time and is only complaining of finger tip paresthesias. At this point would seem reasonable continue him on his current therapy which includes anticoagulation, aspirin and nitroglycerin. We can trend his biomarkers, in the absence of significant elevation and with resolution of his symptoms the patient could be considered for noninvasive stress testing. 2. Tobacco abuse: Patient should be counseled regarding the need to discontinue tobacco abuse. 3. Dyspnea: This is likely related to primary pulmonary disease and his chronic tobacco abuse. Echocardiogram will help discern if he has any evidence of LV dysfunction or cardiac component to his dyspnea.
[2016-11-07 20:15] LABS: PARTIAL THROMBOPLASTIN RATIO 2.1
[2016-11-07] MEDS: METOPROLOL TARTRATE 25 MG TAB PO SCH (21:19)
[2016-11-08] MEDS: SODIUM CHLORIDE 0.9% 1000ML 1,000 ML IV SCH ×2 (02:44→10:45)
[2016-11-08 03:53] VITALS: BP 162/103; PULSE 86; TEMP 37.2; O2SAT 98
[2016-11-08 07:19] VITALS: BP 167/93; PULSE 88; TEMP 36.9; O2SAT 98
[2016-11-08 07:27] LABS: HEMATOCRIT 40.2 % (42-52); MEAN CELL VOLUME 92.6 fL (80-100); MEAN CORPUSCULAR HEMOGLOBIN 33.2 pg (25-34); MEAN CORPUSCULAR HGB CONC 35.8 g/dl (32-36); RED BLOOD COUNT 4.34 M/uL (4.7-6.1); WHITE BLOOD COUNT 6.63 K/uL (4.8-10.8)
[2016-11-08 07:55] LABS: MEAN PLATELET VOLUME 9.6 fL (7.4-10.4); PLATELET COUNT 96 K/uL (130-400)
[2016-11-08 07:57] LABS: PLT ESTIMATE DECREASED
[2016-11-08] MEDS: METOPROLOL TARTRATE 25 MG TAB PO SCH (07:59)
[2016-11-08 08:00] VITALS: O2SAT 97
[2016-11-08 08:03] LABS: ALT/SGPT 103 U/L (12-78); AST/SGOT 79 U/L (15-37); BLOOD UREA NITROGEN 8 mg/dl (7-18); C-REACTIVE PROTEIN < 0.29 mg/dl (0-0.29); CALCIUM 8.4 mg/dl (8.5-10.1); CARBON DIOXIDE 25 mmol/L (21-32); CHLORIDE 103 mmol/L (98-107); CREATININE 0.68 mg/dl (0.60-1.40); GLUCOSE 91 mg/dl (70-99); POTASSIUM 3.8 mmol/L (3.5-5.1); SODIUM 137 mmol/L (136-145)
[2016-11-08 08:08] LABS: ALB/GLOB RATIO 1.1 (0.9-2); ALKALINE PHOSPHATASE 79 U/L (45-117)
[2016-11-08] MEDS ORDERED: ASPIRIN 81 MG ECTAB PO SCH (09:00)
--- NOTE | 2016-11-08 09:07 | EXERCISE STRESS ECHO ---
*NOTICE TO RECEIVING LIBERTARIAN AGENCY This information is strictly Confidential and protected under [place] law. [place] law prohibits you from making any further disclosure of this information unless further disclosure is expressly permitted by the written consent of the person to whom it pertains or is authorized by law. A general authorization for the release of medical or other information is not sufficient for this purpose. Hospital accepts no responsibility if the information is made available to any other person, INCLUDING THE PATIENT. Interpretation Summary * Name: LINDA MÁRQUEZ Study Date: 11/08/2016 08:15 AM BP: 167/106 mmHg * Patient Location: C.2T\S\S240\S\2 HR: 79 * : 1970 (M/d/yyyy) Gender: Male Height: 66 in * Age: 45 yrs Ethnicity: AA Weight: 165 lb * Ordering Physician: Smith Barahona * Referring Physician: Self, Referred * Performed By: Krissy Turcios RCS * * Reason For Study: CHEST PAIN * BSA: 1.8 m2 * -- Conclusions -- * Stress Echo: * 1. No new wall motion abnormalities following exercise to suggest ischemic changes at 85 % MPHR. Anterior wall did not appear to augment significantly, and other wall segments augmented only mildly. This could be due to hypertensive response, but cannot rule out ischemic heart disease. * 2. Negative exercise ECG for ischemia at 85 % MPHR. * 3. Hypertensive blood pressure response to exercise. * 4. No arrhythmia. * 5. Study terminated due to hypertension. Chest pain was reported at the onset of the procedure and continued throughout without significant change. * 6. Exercised 5 minutes and 29 seconds on standard Shay protocol. Procedure Details * ECHOEX, CPT #34001 Left Ventricle * The left ventricle is normal in size. * There is normal left ventricular wall thickness. * Overall LV systolic function can slightly more hyperdynamic following exercise. There were no new wall motion abnormalities. The anterior wall did not augment significantly. Other wall segments appear to augment mildly. There was chest pain at the onset of the procedure and this continued throughout the test without worsening. * Left ventricular systolic function is normal. * The left ventricular wall motion is normal at rest. * Resting wall motion: Normal. Stress wall motion: Appropriate increase in Left ventricular systolic function and decrease in cavity size. No stress induced segmental wall motion abnormalities. Stress Parameters * NSR at 80 bpm. * Stress ECG: No ST changes. No arrhythmias. * No arrhythmia were noted with stress. * The stress portion of this study was personally supervised by the undersigned interpreting physician. * Rest heart rate was '79' BPM. * Rest blood pressure was '167/106' * Maximum heart rate achieved was 151 bpm. * Maximum heart rate was 85 % of maximum age-predicted heart rate. * Maximum blood pressure was '209/110' * Total exercise time was '05:29' * Maximum exercise MET level achieved was '7.00' METS * Maximum treadmill speed was '2.50' miles per hour. * Maximum treadmill elevation was '12.00'% grade. * Exercise-induced hypertension. * Exercise was terminated due to 'Hypertension' MMode 2D Measurements and Calculations IVSd 1.0 cm LVIDd 4.6 cm LVIDs 3.3 cm LVPWd 1.1 cm IVS/LVPW 0.93 FS 29.2 % EDV(Teich) 98.5 ml ESV(Teich) 43.3 ml EF(Teich) 56.1 % EDV(cubed) 98.9 ml ESV(cubed) 35.1 ml EF(cubed) 64.5 % LV mass(C)d 173.0 grams LV mass(C)dI 93.9 grams/m\S\2 SV(Teich) 55.2 ml SI(Teich) 30.0 ml/m\S\2 SV(cubed) 63.8 ml SI(cubed) 34.6 ml/m\S\2
[2016-11-08] MEDS ORDERED: NURSING VERBAL MED ORDER ONE (11:15)
[2016-11-08 11:29] VITALS: BP_SYST 170; BP_SYST 174; BP_DIAS 124; BP_DIAS 125; PULSE 79; TEMP 36.7; O2SAT 100
[2016-11-08 12:00] VITALS: O2SAT 97
[2016-11-08] MEDS ORDERED: ASPEC81 PO (12:17)
[2016-11-08] MEDS ORDERED: LPR25 PO (12:17)
[2016-11-08] MEDS ORDERED: ATOR-26 PO (12:17)
--- NOTE | 2016-11-08 12:28 | Discharge Instructions ---
Discharge Instructions Date of Service Nov 08, 2016. Admission Reason for Admission: Chest Pain, R/O Acute Myocardial Infarction Discharge Discharge Diagnosis / Problem: Chest Pain Discharge Goals Goal(s): Decrease discomfort, Improve function, Increase independence Activity Recommendations Activity Limitations: resume your previous activity . Instructions / Follow-Up Instructions / Follow-Up Chest Pain and Tingling in Hand with Elevated Blood Pressures: - You underwent stress testing and cardiac enzymes that were negative. The stress testing did cause increase blood pressure readings - You blood pressure has remained elevated during admission and you would benefit from medication to help with this - You will be provided a prescription for Metoprolol 25 mg twice a day. When you visit your family doctor they may choose to use something different. - Recommend a daily aspirin 81 mg (baby aspirin). Would recommend taking too much ibuprofen, aleve, motrin... with daily aspirin as this can be harsh on the stomach and increase bleeding in the stomach High Triglycerides and High Cholesterol: - Recommend medication to help control this and continue to monitor with your family doctor Elevated Liver Tests: - Looking at the liver there is signs of sludge (thickened bile) - this can cause people to get abdominal pain and gallbladder pains especially after eating fatty foods - This is worth keeping an eye on and recommend further follow-up if this becomes an issue Alcohol and Tobacco Use: - Recommend cessation of both to help promote overall health and cardiovascular health Follow-Up: - Please follow-up with Dr. Hunter as established - he may want to adjust blood pressure medications and cholesterol medications Current Hospital Diet Patient's current hospital diet: AHA Diet (Heart Healthy) Discharge Diet Recommended Diet: AHA Diet (Heart Healthy) Pending Studies Studies pending at discharge: no Laboratory Results Lipid Panel Test 11/07/16 08:50 Range/Units Triglycerides Level 588 H 0-150 mg/dl Cholesterol Level 376 H 0-200 mg/dl HDL Cholesterol 39 mg/dl Cholesterol/HDL Ratio 9.6 LDL Cholesterol, Calculated mg/dl Medical Emergencies . Who to Call and When: Medical Emergencies: If at any time you feel your situation is an emergency, please call 911 immediately. . Non-Emergent Contact Non-Emergency issues call your: Primary Care Provider Call Non-Emergent contact if: you have a fever, your pain is concerning you, you have any medication questions . . "Provider Documentation" section prepared by Brooklyn Calhoun. . VTE Core Measure Inpt VTE Proph given/why not?: Other Anticoagulation
[2016-11-08] MEDS ORDERED: GEMF600T3 PO (13:02)
[2016-11-08] MEDS ORDERED: NICO21DI35 TD (13:02)
[2016-11-08 13:41] VITALS: BP 170/124; PULSE 79; TEMP 36.7; O2SAT 97
--- NOTE | 2016-11-08 15:01 | Discharge Summary ---
Discharge Summary Date of Service Nov 08, 2016. (Brooklyn Calhoun PA-C) Discharge Summary Admission Date: Nov 07, 2016 at 10:11 Discharge Date: Nov 08, 2016 Discharge Disposition: Home Principal Diagnosis: Atypical Chest Pain and Hypertension Procedures: CHEST ONE VIEW PORTABLE FINDINGS: Cardiomediastinal silhouette normal. Lungs and pleural spaces clear. Osseous structures and upper abdomen normal. IMPRESSION: 1. No acute cardiopulmonary disease. Right upper quadrant ultrasound (LIVER) ABDOMEN LIMITED FINDINGS: Fatty infiltration of liver. Small amount of gallbladder sludge. No shadowing gallstones. Common bile duct 5 mm. Pancreas is poorly seen overlying bowel content. Right kidney is negative for hydronephrosis. IMPRESSION: Small amount of gallbladder sludge. Fatty infiltration of liver. Normal caliber bile duct. RESTING ECHOCARDIOGRAM -- Conclusions -- * 1. Normal LV size. Borderline LV wall thickness. * 2. Normal LV funciton. LVEF 55-60%. No regional wall motion abnormalities. * 3. Normal RV size and function. * 4. No significant valvular pathology. * 5. No prior studies for comparison. STRESS ECHOCARDIOGRAM -- Conclusions -- * Stress Echo: * 1. No new wall motion abnormalities following exercise to suggest ischemic changes at 85 % MPHR. Anterior wall did not appear to augment significantly, and other wall segments augmented only mildly. This could be due to hypertensive response, but cannot rule out ischemic heart disease. * 2. Negative exercise ECG for ischemia at 85 % MPHR. * 3. Hypertensive blood pressure response to exercise. * 4. No arrhythmia. * 5. Study terminated due to hypertension. Chest pain was reported at the onset of the procedure and continued throughout without significant change. * 6. Exercised 5 minutes and 29 seconds on standard Shay protocol. Consultations: 1. Cardiology (Brooklyn Calhoun PA-C) Medication Reconciliation New Medications: Gemfibrozil (Lopid) 600 Mg Tab 1 TAB PO BID for 30 Days, #60 TAB 5 Refills Nicotine (Nicoderm Cq 21MG Patch) 21 Mg/24 Hr Dis 1 PATCH TD DAILY for 30 Days, #30 PATCH Aspirin (Aspirin EC Low Dose) 81 Mg Ectab 81 MG PO QAM for 30 Days, #30 TAB Metoprolol Tartrate (Lopressor) 25 Mg Tab 25 MG PO BID for 14 Days, #28 TAB Continued Medications: Multivitamin (Multivitamin) Tab 1 TAB PO DAILY, 0 Refills Discontinued Medications: Naproxen (Aleve) 220 Mg Tab 220 MG PO DIRECTED, TAB Discharge Exam Review of Systems: Constitutional: No fever, No chills Eyes: No worsening of vision ENT: No nasal symptoms, No sore throat, No trouble swallowing Respiratory: No cough, No shortness of breath Cardiovascular: No chest pain, No palpitations Abdomen: No pain, No nausea, No vomiting, No diarrhea, No constipation Musculoskeletal: No swelling, No calf pain Genitourinary - Male: No dysuria Neurologic: + numbness/tingling (L hand (improving)) Hematologic / Lymphatic: No abnormal bleeding/bruising, No clotting problems Physical Exam: General Appearance: WD/WN, no apparent distress Eyes: sclerae normal ENT: hearing grossly normal Neck: supple, no JVD, trachea midline Respiratory/Chest: lungs clear, normal breath sounds, no respiratory distress, no accessory muscle use Cardiovascular: regular rate, rhythm, no gallop, no murmur Abdomen / GI: normal bowel sounds, non tender, soft Extremities: no calf tenderness, no pedal edema Neurologic/Psychiatric: alert, oriented x 3 Skin: normal color, warm/dry (Brooklyn Calhoun, PAYudelkaC) Hospital Course ADMISSION: Mr Price is a pleasant 45 year old male current smoker, alcohol use disorder and no routine medical care who presents to the ER with worsening chest and left arm pain/change in sensation. Initial symptoms started 5-6 weeks ago. Intermittent chest discomfort. Occasional associated shortness of breath, increased sputum cough, diaphoresis and nausea. Last 2 days increased frequency of symptoms. This morning he woke up with new onset left arm numbness and tingling in his arm and hand so he decided to come to the ER for further evaluation. He receives no routine medical care. HOSPITAL COURSE: Mr. Price was admitted for atypical chest pain and cardiac R/ O. He has had poor outpatient follow-up and PCP was established during admission. Cardiac enzymes remained negative and echo/stress echo negative. Stress testing stopped due to hypertension and due to hypertension complete ischemic issues could not be excluded. Patient reports improvement in symptoms and are largely reproducible with arm movements. He reports that he had issues with triglycerides in the past and was on Gemfibrozil with improvement. He was provided a prescription for Gemfibrozil 600 mg BID, ASA 81 mg daily, and Metoprolol 25 mg BID. Pending establishment with PCP would defer further changes for hypertension and hypertriglyceridemia/hypercholesterolemia. Total Time Spent: Greater than 30 minutes This includes examination of the patient, discharge planning, medication reconciliation, and communication with other providers. (Brooklyn Calhoun PA-C) Discharge Instructions Please refer to the electronic Patient Visit Report (Discharge Instructions) for additional information. (Brooklyn Calhoun PA-C) Additional Copies To Yash Hunter DO Reviewed: Pt Seen/Exam by Me (Viola De La Torre DO) History Pt is feeling improved. Had chest pain with stress, but this was at onset. No SOB. No further UE n/t. Tolerating PO. States he was on gemfibrozil at one point but this his triglycerides went to WNL and this was stopped. States his diet is "terrible". Would like to quit smoking. Had tried chantix in the past, but had issues with hallucinations. Agree with HPI/ROS as noted. (Viola De La Torre DO) General Appearance: WD/WN, no apparent distress Neck: supple Respiratory: normal breath sounds, no respiratory distress, no accessory muscle use Cardiovascular: normal peripheral pulses, regular rate, rhythm Gastrointestinal: non tender, soft Extremities: non-tender, no pedal edema Neurologic/Psychiatric: alert, normal mood/affect, oriented x 3 Skin Characteristics: normal color, warm/dry (Viola De La Torre DO) Assessment/Plan Agree with plan as outlined above Discussed with cardiology, stress not fully able to r/o ischemia, however nothing concerning noted, will f/u as outpt ddimer WNL Trop neg x3 Gemfibrozil started as prior given elevated TG May need a statin as well, pt would like to try diet and smoking cessation first B12/folate WNL B1 pending HTN: started on metoprolol (Viola De La Torre DO)
== END 2016-11-08 14:11 | disposition home or self-care (01) ==
LOC: C.EDB 07:46 → C.2T 10:11 → ENRESERV 11:04
PROVIDERS: ADMIT Hospitalist; ATTEND Family Medicine
DX: R07.89 Other chest pain (principal); I10 Essential (primary) hypertension; F17.200 Nicotine dependence, unspecified, uncomplicated; E78.00 Pure hypercholesterolemia, unspecified; E78.1 Pure hyperglyceridemia

== ENCOUNTER 2018-12-08 13:08 | Observation (INO) ==
--- OUTSIDE RECORDS SUMMARY | 2018-12-08 13:11 | External Medical Summary | Continuity of Care Document ---
:1970 Author Name Neelam Jiang Address Unavailable Unavailable , Care Team Providers Name Role Phone Ahmet Duncan PA-C Unavailable [email or web address] Maria L GUTHRIE Unavailable [email or web address] Grace Jiang Unavailable [email or web address] Jennifer John PA-C Unavailable [email or web address] Jiang, W Unavailable Unavailable Unavailable Unavailable Unavailable Problems History of Tobacco Use Status: Resolved Headache (784.0) (R51) Neck pain (723.1) (M54.2) Smokes cigarettes (305.1) (F17.210) Pain, wrist joint (719.43) (M25.539) Lichen planus (697.0) (L43.9) Alcohol abuse (305.00) (F10.10) Angioedema (995.1) (T78.3XXA) Salivary calculus (527.5) (K11.5) Carpal tunnel syndrome (354.0) (G56.00) Back pain (724.5) (M54.9) Essential hypertriglyceridemia (272.1) (E78.1) Urticaria (708.9) (L50.9) Flank pain (789.09) (R10.9) Laryngopharyngeal reflux (478.79) (K21.9) Fatty liver (571.8) (K76.0) Hyperlipidemia (272.4) (E78.5) Elevated transaminase level (790.4) (R74.0) Diarrhea (787.91) (R19.7) Abdominal pain (789.00) (R10.9) Sialoadenitis (527.2) (K11.20) Abnormal blood chemistry (790.6) (R79.9) Allergies and Adverse Reactions Gemfibrozil TABS (Allergy) Animal dander - Cats (Allergy) Animal dander - Dogs (Allergy) Medications Omeprazole 40 MG Oral Capsule Delayed Release; TAKE 1 CAPSULE DAILY. [place] Lisa Start: 08-Apr-2012 Quantity: 30 Refills: 10 Multivital TABS; TAKE 1 TABLET DAILY. [place] John tart: 05-Feb-2012 Refills: 0 Vitamin B Complex Oral Tablet; TAKE 1 TABLET DAILY. BILL Duncan Start: 08-Apr-2011 Refills: 0 Procedures History of Oral Surgery Tooth Extraction Status: Completed History of Dental Surgery Status: Comple twan Immunizations Immunizations not documented Family History Unknown Family Member Family history of FH Unobtainable - Patient Status: Active Comments: Family History Adopted Mother No pertinent family history (V49.89) (Z78.9) Status: Active Social History - Smoking Status Smoker. current status unknown Plan of Treatment Planned Observations Planned Goals not documented Results No Known Results Results not documented
[2018-12-08] MEDS ORDERED: SODIUM CHLORIDE 0.9% 1000ML 1,000 ML IV ONE (13:21)
[2018-12-08] MEDS ORDERED: ONDANSETRON INJ 2 MG/ML 2 ML VIAL IV STA (13:21)
[2018-12-08] MEDS ORDERED: ACETAMINOPHEN 1,000 MG/100 ML VIAL IV STA ×2 (13:21→21:54)
[2018-12-08 14:00] LABS: Hematocrit (blood only) 42.6 % (42-52); Hemoglobin 15.1 g/dL (14.0-18.0); Mean Corpuscular Hgb Conc 35.4 g/dL (32-36); Mean Corpuscular Volume 93.2 fL (80-100); RDW Coefficient of Variation 12.4 % (11.5-14.5); RDW Standard Deviation 42.1 fL (36.4-46.3); Red Blood Count 4.57 M/uL (4.7-6.1); White Blood Count 12.37 K/uL (4.8-10.8)
[2018-12-08 14:05] LABS: Partial Thromboplastin Time 26.6 Seconds (21.0-31.0); Prothrombin Time 10.7 Seconds (9.0-12.0)
[2018-12-08 14:09] LABS: Albumin Level 4.2 gm/dl (3.4-5.0); Bilirubin Direct 0.2 mg/dl (0-0.2); Calcium 9.5 mg/dl (8.5-10.1); Creatinine Clr Calc Pharmacy 108.4 ml/min; Est GFR (African American) 125.9; Est GFR (Non-African American) 108.6; Magnesium 1.7 mg/dl (1.8-2.4)
[2018-12-08 14:12] LABS: Bilirubin,Total 0.6 mg/dl (0.2-1); Total Protein 8.3 gm/dl (6.4-8.2)
[2018-12-08 14:23] LABS: Platelet Count 96 K/uL (130-400)
[2018-12-08 14:24] LABS: Basophils # (auto) 0.02 K/uL (0-0.2); Basophils % (auto) 0.2 %; Eosinophils # (auto) 0.03 K/uL (0-0.5); Eosinophils % (auto) 0.2 %; Immature Granulocytes # (auto) 0.05 K/uL (0.00-0.02); Immature Granulocytes % (auto) 0.4 %; Lymphocytes % (auto) 10.5 %; Monocytes # (auto) 1.26 K/uL (0.11-0.59); Monocytes % (auto) 10.2 %; Neutrophils # (auto) 9.71 K/uL (1.4-6.5); Neutrophils % (auto) 78.5 %; Platelet Estimate Decreased (Normal)
--- NOTE | 2018-12-08 15:05 | Ultrasound Report ---
US gallbladder CLINICAL HISTORY: 48 years-old Male presenting with ruq pain febrile tachy ro leeanne. TECHNIQUE: Real-time grayscale and limited color Doppler ultrasound imaging of the abdomen limited to the right upper quadrant was performed. COMPARISON: 11/07/2016. FINDINGS: Pancreas: Visualized portions of the pancreatic head and body normal. Liver: Moderately hyperechogenic parenchyma with partial obscuration of the right hemidiaphragm, like ly indicating moderate steatosis. The liver measures 14.1 cm in maximal sagittal dimension. No sonogr aphic evidence of hepatic mass. Main portal vein patent with normal directional flow. Biliary: No intrahepatic biliary ductal dilatation. Common bile duct measures up to 6 mm in diameter, which is borderline dilated. Gallbladder: No evidence of gallstones, gallbladder wall thickening, gallbladder distention, or peric holecystic fluid or inflammatory change. Sonographic William's sign negative. Right kidney: Normal in appearance without evidence of hydronephrosis. Ascites: None. Other: None. IMPRESSION: 1. No cholelithiasis or evidence of cholecystitis. 2. Borderline extrahepatic biliary ductal prominence. This is nonspecific. Choledocholithiasis consi dered unlikely. Correlate clinically to exclude ascending cholangitis. 3. Hepatic steatosis. Correlate with liver function tests to exclude steatohepatitis as a cause for abdominal pain. Electronically signed by: Tim Whitaker M.D. 12/08/2018 3:03 PM
[2018-12-08 15:38] LABS: Appearance Urine Clear (Clear); Bilirubin Urine Negative (Negative); Blood Urine Negative (Negative); Color Urine Yellow; Glucose Urine UA Negative (Negative); Ketones Urine 1+ (Negative); Leukocyte Esterase Urine Negative (Negative); Nitrite Urine Negative (Negative); Protein Urine Negative (Negative); Specific Gravity Urine 1.024 (1.000-1.030); Urobilinogen Urine Negative (Negative); pH Urine 5.5 (4.5-7.5)
--- NOTE | 2018-12-08 15:40 | XRay Report ---
CHEST AND ABDOMEN 2 VIEWS HISTORY: epigastric pain COMPARISON: Chest 11/07/2016. FINDINGS: The lungs are clear. The heart is normal in size. No pleural effusions. No pneumothorax. Mu ltiple nondilated gas-filled loops of large and small bowel seen throughout the abdomen. No evidence for bowel obstruction. No renal or ureteral calculi. No pneumoperitoneum. No pneumatosis. IMPRESSION: No acute cardiopulmonary process. No evidence for bowel obstruction. Electronically signed by: Brian Klein M.D. 12/08/2018 3:39 PM
[2018-12-08] MEDS ORDERED: cefTRIAXone SODIUM 1,000 MG/50 ML BAG IV STA (15:50)
--- NOTE | 2018-12-08 17:48 | Emergency Department Note ---
Entered by Lulu Avina acting as a scribe for History of Present Illness General Chief complaint: Arrhythmia/Palpitations Stated complaint: ABNORMAL EGK,VOMITING FOR A COUPLE DAYS Time Seen by Provider: 12/08/18 13:17 Source: patient History of Present Illness Onset (ago): week(s) 2 Location: abdomen Pain Consistency: + other (persistent) Maximum Pain Intensity: 6 Quality: + other (vomiting) Exacerbated By: + eating (drinking) Associated symptoms: + denies other symptoms (hematemesis, dark black vomit, hematuria), + nausea/vomiting and + other (right sided abdominal pain, lower back pain, pain with urination); no chest pain and no shortness of breath The patient is a 48 year old male who presents to the Emergency Room with complaints of persistent vomiting starting 2 weeks ago. The patient states that for the past 2 weeks he has had constant nausea and intermittent vomiting. He reports that along with it he has been having right sided abdominal pain and lower back pain. He notes that occasionally he has had pain with urination so he has been concerned about his kidneys. He notes that nausea is worse with eating and drinking, but not the pain. The patient notes that he drinks regularly and he is a smoker. The patient denies hematemesis, dark black vomit, hematuria, chest pain, shortness of breath, and a history of abdominal surgeries. Home Medications Home Medications Medication Instructions Recorded Confirmed Type aspirin 81 mg PO QAM 12/08/18 12/08/18 History atorvastatin 20 mg PO QAM 12/08/18 12/08/18 History coenzyme Q10 [CoQ-10] 100 mg PO QAM 12/08/18 12/08/18 History fenofibrate 160 mg PO QAM 12/08/18 12/08/18 History metoprolol succinate 25 mg PO QAM 12/08/18 12/08/18 History Allergies Allergy/AdvReac Type Severity Reaction Status Date / Time No Known Allergies Allergy Unverified 12/08/18 15:00 Past Med/Surg History Medical History HLD (hyperlipidemia) HTN (hypertension) Family History Other Family history not known due to adoption Social History Preferred Language: Kiswahili marital status: Current Living Situation: Spouse current occupational status: employed Feels Safe at Home: Yes Smoking Status: Current every day smoker Hx Alcohol Use: Yes Review of Systems See HPI for pertinent positives & negatives. and A total of 10 systems reviewed and were otherwise negative Physical Exam Vital Signs Vital Signs - 24 hr 12/08/18 13:12 12/08/18 15:32 12/08/18 17:10 Temperature 38.1 C H 37.8 C H Temperature Source Oral Oral Sepsis Recent Fever Within 48 Hours No Sepsis New/Unexplained Change in Mental Status No Sepsis Action Taken by Nursing No Action Required Pulse Rate 128 H Pulse Rate [Right Finger] 102 H 94 H Pulse Rhythm [Right Finger] Regular Pulse Strength [Right Finger] Normal Respiratory Rate 18 16 18 Respiratory Effort / Characteristics Non-Labored Non-Labored Non-Labored Respiratory Depth Normal Normal Normal Respiratory Pattern Regular Blood Pressure 189/127 H Blood Pressure [Right Arm] 188/122 H 179/117 H Blood Pressure Mean 147 Blood Pressure Mean [Right Arm] 144 137 Blood Pressure Position Sitting Blood Pressure Position [Right Arm] Sitting Pulse Oximetry 97 98 97 Oxygen Delivery Method Room Air Room Air Room Air GENERAL: He is oriented to person, place, and time. He appears well-developed and well-nourished. He does not appear distressed. HENT: Exam performed. - Head: Normocephalic and atraumatic. - Right Ear: External ear normal. No mastoid tenderness. - Left Ear: External ear normal. No mastoid tenderness. - Mouth/Throat: The oropharynx is clear and moist. No trismus in the jaw. No dental abscesses or uvula swelling. No oropharyngeal exudate or tonsillar abscesses. EYES: Conjunctivae and EOM are normal. Pupils are equal, round, and reactive to light. Right eye exhibits no discharge. Left eye exhibits no discharge. No scleral icterus. NECK: Normal range of motion. Neck supple. No JVD present. No spinous process tenderness present. No carotid bruit present. No rigidity. No tracheal deviation and normal range of motion present. No Brudzinski's sign and no Kernig's sign noted. CV: Tachycardic rate, regular rhythm, normal heart sounds and intact distal pulses. There is no peripheral edema. Palpable radial pulses bue. PULM/CHEST: Effort normal and breath sounds normal. No respiratory distress. No stridor. He has no wheezes. He has no rales. - Chest Wall: He exhibits no tenderness. ABD: The abdomen is soft. Bowel sounds are normal. He has no distension. No mass is present. There is pain on palpation of the RUQ and epigastric area. There is no rebound, no guarding, no William's sign and no tenderness at McBurney's point. Rovsig negative. MUSC/SKEL: Normal range of motion. There is no peripheral edema, tenderness or deformity. LYMPH: No cervical adenopathy. NEURO: He is alert and oriented to person, place, and time. He has normal strength. No cranial nerve deficit or sensory deficit. Coordination and gait normal. GCS eye subscore is 4. GCS verbal subscore is 5. GCS motor subscore is 6. Cerebellar tests wnl. SKIN: Skin is warm and dry. He is not diaphoretic. PSYCH: He has a normal mood and affect. Behavior is normal. Judgment and thought content normal. Course 1318: Past medical records reviewed. The patient was evaluated in room C10. A complete history and physical exam was performed. 1612: Patient's labs show a white count of 12.37. Lactic acid within normal limits. Mild elevation of AST at 84. ALT within normal limits. Alkaline phosphatase within normal limits. Bilirubin within normal limits. Urinalysis within normal limits. Ultrasound shows evidence of cholecystitis however there is borderline extrahepatic biliary duct prominence which could be concerning for choledocholithiasis vs ascending cholangitis. On repeat exam, the patient continued to have pain in the RUQ, but no pain on palpation of the RLQ. Given th e patient fever, elevated white count, and RUQ tenderness he will be treated empirically for ascending cholangitis with Rocephin and admitted to the hospitalist service. I discussed the patient's case with Dr. Katerine CORONADO Hospitalist. She agrees with the admission and will further evaluate the pat ient. She asked that GI be paged. I paged GI, Dr. Pyle. He is currently in the OR with a case and will page back. Consultations Consultation #1: I discussed the patient's case with Dr. Katerine CORONADO Hospitalist. She agrees with the admission and will further evaluate the patient. She asked that GI be paged. Time: 16:12 Administered Medications Discontinued Medications Acetaminophen (Ofirmev) 1,000 mg in 100 mls @ 400 mls/hr IV NOW STA Stop: 12/08/18 13:35 Last Infusion: 12/08/18 15:16 Dose: 0 mls/hr Documented by: [id number] Admin: 12/08/18 14:56 Dose: 400 mls/hr Documented by: [id number] Sodium Chloride (Nss 1000ml) 1,000 mls @ 999 mls/hr IV .Q1H1M ONE Stop: 12/08/18 14:21 Last Infusion: 12/08/18 15:59 Dose: 0 mls/hr Documented by: [id number] Admin: 12/08/18 14:56 Dose: 999 mls/hr Documented by: [id number] Ceftriaxone Sodium (Rocephin) 1,000 mg in 50 mls @ 100 mls/hr IV NOW STA Stop: 12/08/18 16:19 Last Infusion: 12/08/18 16:39 Dose: 0 mls/hr Documented by: [id number] Admin: 12/08/18 15:58 Dose: 100 mls/hr Documented by: [id number] Ondansetron HCl (Zofran) 4 mg IV NOW STA Stop: 12/08/18 13:22 Last Admin: 12/08/18 14:57 Dose: 4 mg Documented by: [id number] Medical Decision Making Medical Records Attestation: I reviewed the patient's medical records. Home Medications Current Medication List: was personally reviewed by me Laboratory Data Attestation: I reviewed the patient's lab results. Result diagrams: 12/08/18 13:42 12/08/18 13:42 Lab Results 12/08/18 12/08/18 12/08/18 Range/Units 13:42 13:42 13:42 WBC 12.37 H (4.8-10.8) K/uL RBC 4.57 L (4.7-6.1) M/uL Hgb 15.1 (14.0-18.0) g/dL Hct 42.6 (42-52) % MCV 93.2 (80-100) fL MCH 33.0 (25-34) pg MCHC 35.4 (32-36) g/dL RDW Std Deviation 42.1 (36.4-46.3) fL RDW Coeff of Sarita 12.4 (11.5-14.5) % Plt Count 96 L (130-400) K/uL MPV 10.0 (7.4-10.4) fL Immature Gran % (Auto) 0.4 % Neut % (Auto) 78.5 % Lymph % (Auto) 10.5 % Scott % (Auto) 10.2 % Eos % (Auto) 0.2 % Baso % (Auto) 0.2 % Immature Gran # (Auto) 0.05 H (0.00-0.02) K/uL Neut # (Auto) 9.71 H (1.4-6.5) K/uL Lymph # (Auto) 1.30 (1.2-3.4) K/uL Scott # (Auto) 1.26 H (0.11-0.59) K/uL Eos # (Auto) 0.03 (0-0.5) K/uL Baso # (Auto) 0.02 (0-0.2) K/uL Platelet Estimate Decreased L (Normal) PT (9.0-12.0) Seconds INR (0.9-1.1) APTT (21.0-31.0) Seconds PTT Ratio Sodium 140 (136-145) mmol/L Potassium 3.0 L (3.5-5.1) mmol/L Chloride 103 (98-107) mmol/L Carbon Dioxide 26 (21-32) mmol/L Anion Gap 11.0 (3-11) BUN 10 (7-18) mg/dl Creatinine 0.76 (0.6-1.4) mg/dl Est Cr Clr Drug Dosing 108.4 ml/min Est GFR ( Amer) 125.9 Est GFR (Non-Af Amer) 108.6 BUN/Creatinine Ratio 13.0 (10-20) Glucose 83 (70-99) mg/dl Lactate 1.7 (0.4-2.0) mmol/L Calcium 9.5 (8.5-10.1) mg/dl Magnesium 1.7 L (1.8-2.4) mg/dl Total Bilirubin 0.6 (0.2-1) mg/dl Direct Bilirubin 0.2 (0-0.2) mg/dl AST 84 H (15-37) U/L ALT 66 (12-78) U/L Alkaline Phosphatase 76 (45-117) U/L Total Protein 8.3 H (6.4-8.2) gm/dl Albumin 4.2 (3.4-5.0) gm/dl Lipase 322 (73-393) U/L Urine Color Urine Appearance (Clear) Urine pH (4.5-7.5) Ur Specific [place] (1.000-1.030) Urine Protein (Negative) Urine Glucose (UA) (Negative) Urine Ketones (Negative) Urine Blood (Negative) Urine Nitrite (Negative) Urine Bilirubin (Negative) Urine Urobilinogen (Negative) Ur Leukocyte Esterase (Negative) 12/08/18 12/08/18 Range/Units 13:42 Unknown WBC (4.8-10.8) K/uL RBC (4.7-6.1) M/uL Hgb (14.0-18.0) g/dL Hct (42-52) % MCV (80-100) fL MCH (25-34) pg MCHC (32-36) g/dL RDW Std Deviation (36.4-46.3) fL RDW Coeff of Sarita (11.5-14.5) % Plt Count (130-400) K/uL MPV (7.4-10.4) fL Immature Gran % (Auto) % Neut % (Auto) % Lymph % (Auto) % Scott % (Auto) % Eos % (Auto) % Baso % (Auto) % Immature Gran # (Auto) (0.00-0.02) K/uL Neut # (Auto) (1.4-6.5) K/uL Lymph # (Auto) (1.2-3.4) K/uL Scott # (Auto) (0.11-0.59) K/uL Eos # (Auto) (0-0.5) K/uL Baso # (Auto) (0-0.2) K/uL Platelet Estimate (Normal) PT 10.7 (9.0-12.0) Seconds INR 1.0 (0.9-1.1) APTT 26.6 (21.0-31.0) Seconds PTT Ratio 1.0 Sodium (136-145) mmol/L Potassium (3.5-5.1) mmol/L Chloride (98-107) mmol/L Carbon Dioxide (21-32) mmol/L Anion Gap (3-11) BUN (7-18) mg/dl Creatinine (0.6-1.4) mg/dl Est Cr Clr Drug Dosing ml/min Est GFR ( Amer) Est GFR (Non-Af Amer) BUN/Creatinine Ratio (10-20) Glucose (70-99) mg/dl Lactate (0.4-2.0) mmol/L Calcium (8.5-10.1) mg/dl Magnesium (1.8-2.4) mg/dl Total Bilirubin (0.2-1) mg/dl Direct Bilirubin (0-0.2) mg/dl AST (15-37) U/L ALT (12-78) U/L Alkaline Phosphatase (45-117) U/L Total Protein (6.4-8.2) gm/dl Albumin (3.4-5.0) gm/dl Lipase (73-393) U/L Urine Color Yellow Urine Appearance Clear (Clear) Urine pH 5.5 (4.5-7.5) Ur Specific [place] 1.024 (1.000-1.030) Urine Protein Negative (Negative) Urine Glucose (UA) Negative (Negative) Urine Ketones 1+ H (Negative) Urine Blood Negative (Negative) Urine Nitrite Negative (Negative) Urine Bilirubin Negative (Negative) Urine Urobilinogen Negative (Negative) Ur Leukocyte Esterase Negative (Negative) Imaging Data Radiologist's Impression: Radiology results as stated below per my review and the radiologist's interpretation: CHEST AND ABDOMEN 2 VIEWS HISTORY: epigastric pain COMPARISON: Chest 11/07/2016. FINDINGS: The lungs are clear. The heart is normal in size. No pleural effusions. No pneumothorax. Multiple nondilated gas-filled loops of large and small bowel seen throughout the abdomen. No evidence for bowel obstruction. No renal or ureteral calculi. No pneumoperitoneum. No pneumatosis. IMPRESSION: No acute cardiopulmonary process. No evidence for bowel obstruction. Electronically signed by: Brian Klein M.D. 12/08/2018 3:39 PM US gallbladder CLINICAL HISTORY: 48 years-old Male presenting with ruq pain febrile tachy ro leeanne. TECHNIQUE: Real-time grayscale and limited color Doppler ultrasound imaging of the abdomen limited to the right upper quadrant was performed. COMPARISON: 11/07/2016. FINDINGS: Pancreas: Visualized portions of the pancreatic head and body normal. Liver: Moderately hyperechogenic parenchyma with partial obscuration of the right hemidiaphragm, likely indicating moderate steatosis. The liver measures 14.1 cm in maximal sagittal dimension. No sonographic evidence of hepatic mass. Main portal vein patent with normal directional flow. Biliary: No intrahepatic biliary ductal dilatation. Common bile duct measures up to 6 mm in diameter, which is borderline dilated. Gallbladder: No evidence of gallstones, gallbladder wall thickening, gallbladder distention, or pericholecystic fluid or inflammatory change. Sonographic William's sign negative. Right kidney: Normal in appearance without evidence of hydronephrosis. Ascites: None. Other: None. IMPRESSION: 1. No cholelithiasis or evidence of cholecystitis. 2. Borderline extrahepatic biliary ductal prominence. This is nonspecific. Choledocholithiasis considered unlikely. Correlate clinically to exclude ascending cholangitis. 3. Hepatic steatosis. Correlate with liver function tests to exclude steatohepatitis as a cause for abdominal pain. Electronically signed by: Tim Whitaker M.D. 12/08/2018 3:03 PM ECG Data Attestation: I personally reviewed and interpreted this ECG as follows: Indication: vomiting Rate (beats per minute): 120 Rhythm: sinus tachycardia Findings: + other (MS, QRS, and QT-c intervals are within normal limits, left ventricular hypertrophy) and + PVC; no ST depression and no ST elevation Blood Pressure Blood Pressure Findings: Elevated blood pressure Blood Pressure Disposition: further management by hospitalist KATHRIN Narrative Patient's labs show a white count of 12.37. Lactic acid within normal limits. Mild elevation of AST at 84. ALT within normal limits. Alkaline phosphatase within normal limits. Bilirubin within normal limits. Urinalysis within normal limits. Ultrasound shows evidence of cholecystitis however there is borderline extrahepatic biliary duct prominence which could be concerning for choledocholithiasis vs ascending cholangitis. On repeat exam, the patient continued to have pain in the RUQ, but no pain on palpation of the RLQ. Given the patient fever, elevated white count, and RUQ tenderness he will be treated empirically for ascending cholangitis with Rocephin and admitted to the hospitalist service. I discussed the patient's case with Dr. Garcias [facility] Hospitalist. She agrees with the admission and will further evaluate the patient. She asked that GI be paged. I paged Dr. Edenilson ANDERSON. He is currently in the OR with a case and will page back. Impression & Plan Abdominal pain, RUQ, Fever Discharge Plan Visit Data Chief Complaint: Arrhythmia/Palpitations Stated Complaint: ABNORMAL EGK,VOMITING FOR A COUPLE DAYS ED Provider: Yeyo Salazar Discharge Problem: Abdominal pain, RUQ, Fever Patient Disposition: Being Evaluated by Hospitalist Forms Stand Alone Forms: My [facility] Prescriptions Prescriptions: No Action atorvastatin 20 mg tablet 20 mg PO QAM RF: 0 aspirin 81 mg Tablet,Delayed Release (Dr/Ec) 81 mg PO QAM RF: 0 metoprolol succinate 25 mg tablet extended release 24 hr 25 mg PO QAM RF: 0 coenzyme Q10 [CoQ-10] 100 mg Capsule 100 mg PO QAM RF: 0 fenofibrate 160 mg tablet 160 mg PO QAM RF: 0 Referrals Referrals: Yash Hunter [Primary Care Provider] - Discharge Problem: Fever Qualifiers: Fever type: unspecified Qualified Code(s): R50.9 - Fever, unspecified The scribe's documentation has been prepared under my direction and personally reviewed by me in its entirety. I confirm that the note above accurately reflects all work, treatment, procedures, and medical decision making performed by me.
--- NOTE | 2018-12-08 18:19 | History & Physical Report ---
Date of Service December 08, 2018 Assessment & Plan (1) Abdominal pain, RUQ: Pt presented with abdominal pain, nausea and vomiting. CT abdomen pelvis with contrast did not confirm any significant pathology. Ultrasound of the right upper quadrant also did not confirm any significant pathology except for fatty liver. Possibly patient abdominal pain is caused by significant alcohol consumption and heavy cigarette smoking that caused acute gastritis. -Admit to medicine for observation on telemetry -Patient recommended to stop drinking alcohol and smoking. Offered nicotine patch which he accepted. -Patient is started on famotidine 20 mg IV twice daily. -For leukocytosis and fever patient is started on Zosyn and ceftriaxone. -Started on IV fluid NS with Potassium -Zofran for nausea and vomiting every 4 hours as needed. -N.p.o. and advance diet as tolerated in the morning. -Hypomagnesemia of 1.7 potassium of 3. Replenish electrolytes as necessary. -Pain management with Percocet every 4 hours as needed for pain -Tylenol PRN for fever. -Full code -DVT prophylaxis with Lovenox 40 mg subcu daily. Present on Admission?: Yes (2) Fever: as the above Present on Admission?: Yes (3) Back pain: Chest x-rays of the lumbar spine shows the followin. No lumbar spine fracture. 2. Mild multilevel osteophytosis within the lumbar spine. -Continue pain management -Refer as outpatient to physical therapy and Ortho for further evaluation and treatment Present on Admission?: Yes (4) Alcohol dependence: Recommended to cut down on alcoholic beverage. Patient appears unaware of his situation and drinking too much. Possibly referral to alcoholic Anonymous would be helpful. Present on Admission?: Yes (5) Hypertension: - Keep on telemetry for observation. EKG NSR, Sinus tachycardia with occasional Premature ventricular complexes Possible Left atrial enlargement Left ventricular hypertrophy. -Premature ventricular complexes are now Present T wave inversion now evident in Inferior leads. -Pt reports no chest pain -Plan to do echocardiogram for LVH. Tachycardia caused by fever and underlining abdominal issues. -Continue metoprolol succinate 25 mg p.o. every morning. -Continue ASA 81 mg daily PO. Present on Admission?: Yes (6) Hypertriglyceridemia: Will check fasting lipids in a.m. Continue atorvastatin 20 mg p.o. every morning and fenofibrate 160 mg p.o. every morning. Present on Admission?: Yes (7) Nicotine dependence: Recommended to quit, offered nicotine patch, patient accepted as already discussed. Present on Admission?: Yes History of Present Illness Primary Care Provider: Yash Hunter Patient is 48 years old male with past medical history of hyperlipidemia, nicotine dependence, chronic back pain, presented to the emergency room with a complaint of abdominal discomfort nausea and vomiting for 1 months or possibly longer. Patient said that condition is ongoing and on occasion he vomits all food content. Patient denies any blood in vomit. Patient said that he drinks up approximately 4-6 hard drinks per day and 2-3 beers per day. Patient does not consider himself or being alcoholic nor having any problems with alcohol. Patient also admits nicotine dependence and smokes approximately 1 pack/day. Patient has had nausea and vomiting became more severe yesterday and today and that was the reason he presented to the emergency room as well as DT could not keep any food down. Patient is reports that it is okay when he is fasting but the pain starts as soon as he eats. Patient denies any blood in stool any dark blood any shortness of breath. Other than this patient reports being in good health. Patient said that nothing alleviate alleviated his symptoms. Patient is concerned about low back pain but said that this issue has been ongoing for some time. Patient also reports having low-grade fever which was subjective and he then measured. In the ER his temperature was 38.1. His white blood cell count was also elevated to 12.37, his magnesium was 1.7, his platelets are 96, his sodium is 140, his potassium is 3, his AST is 84, and his ALT is 66, his creatinine is 0.76, his GFR is over 108. Patient direct bili is 0.2 and total bili is 0.6 which is normal. Ultrasound of the right upper quadrant was done and showed 1. No cholelithiasis or evidence of cholecystitis. 2. Borderline extrahepatic biliary ductal prominence. This is nonspecific. Choledocholithiasis considered unlikely. Correlate clinically to exclude ascending cholangitis. 3. Hepatic steatosis. Correlate with liver function tests to exclude steatohepatitis as a cause for abdominal pain. Decision was made to admit pt to the medicine for observation and GI is consulted. The case was discussed with Dr. Tin ANDERSON and he will evaluate pt in am. -CT abdomen and pelvis with IV and PO contrast did not show any significant pathology: -Lung bases are unremarkable. Fatty infiltration of the liver is noted. There is no biliary or pancreatic ductal dilatation. No peripancreatic or pericholecystic infiltration is noted. No radiopaque stones within the gallbladder or common bile duct are identified. A borderline enlarged portacaval lymph node is probably benign. There is no hydronephrosis. Nephrograms are symmetric. No pneumatosis, free air or portal venous gas is present. The appendix is normal. There is no ascites. No suspicious osseous lesions are noted. IMPRESSION: 1. No acute process within the abdomen. 2. Fatty infiltration of the liver. 3. No biliary ductal dilatation. Pt has elevated AST 84 and admits drinking 4-5 hard liquor drinks per day with several beers daily. Pt also smokes 1 ppd. Allergies Allergy/AdvReac Type Severity Reaction Status Date / Time No Known Allergies Allergy Unverified 12/08/18 15:00 Home Medications Home Medications Medication Instructions Recorded Confirmed Type aspirin 81 mg PO QAM 12/08/18 12/08/18 History atorvastatin 20 mg PO QAM 12/08/18 12/08/18 History coenzyme Q10 [CoQ-10] 100 mg PO QAM 12/08/18 12/08/18 History fenofibrate 160 mg PO QAM 12/08/18 12/08/18 History metoprolol succinate 25 mg PO QAM 12/08/18 12/08/18 History Past Med/Surg History Medical History HLD (hyperlipidemia) HTN (hypertension) Family History Other Family history not known due to adoption Social History Preferred Language: Angolan Communication Ability: Effective 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 Beliefs That Will Affect Care: None marital status: Current Living Situation: Spouse current occupational status: employed Other Information That Helps Us Care for You: No Feels Safe at Home: Yes Safety Concerns: Feels Safe At This Time Smoking Status: Current every day smoker Tobacco Type: cigarettes ; Cigarettes Per Day: 20 ; Do You Dip or Chew Tobacco: No ; Tobacco Cessation Education Requested by Patient: No Hx Alcohol Use: Yes Alcohol type: beer and hard liquor Hx Substance Use: No Review of Systems Review of Systems: All systems reviewed & are unremarkable except as noted in HPI & below Gastrointestinal: + abdominal pain, + nausea and + vomiting Physical Exam Constitutional: WD/WN, vitals as above well developed and well nourished Eyes: PERRL, conjunctivae normal, anicteric sclerae normal visual garcia by confrontation ENMT: external ear and nose normal, oropharynx normal Neck: trachea midline, no thyromegaly Respiratory: normal respiratory effort, lungs clear to auscultation Cardiovascular: RRR, no murmur, no edema Chest (Breasts): normal inspection/palpation of breasts Gastrointestinal (Abdomen): Inspection/Auscultation: abdomen normal to inspection, + abdomen distended and normal bowel sounds Percussion/Palpation: + tympanic to percussion Musculoskeletal: no cyanosis or clubbing, extremities motor strength 5/5 Skin: no rashes, warm and dry Neurologic: patellar DTR's 2+ bilat, sensation intact Psychiatric: A+Ox3, euthymic affect Genitourinary: no testicular masses, no penis abnormality Lymphatic: no cervical or axillary lymphadenopathy Results & Data Vital Signs (Past 12 Hours) Vital Signs Temp Pulse Pulse Resp BP BP Pulse Ox 12/08/18 17:10 37.8 C H 94 H 18 179/117 H 97 12/08/18 15:32 102 H 16 188/122 H 98 12/08/18 13:12 38.1 C H 128 H 18 189/127 H 97 Code Status & VTE Plan Code Status Full Code VTE Prophylaxis Plan VTE Prophylaxis will be ordered: Yes PG Care Time/CCT Total # of Minutes Spent Total Time Spent with Patient: Total time spent is greater than 50% in coordination of care (as documented) at patient's floor/unit and/or counseling patient: (1) Fever Fever type: unspecified Qualified Code(s): R50.9 - Fever, unspecified
[2018-12-08] MEDS ORDERED: NON-FORMULARY MEDICATION (Coenzyme Q10 [Coq-10] 100 MG) PO SCH (18:34)
[2018-12-08] MEDS ORDERED: metroNIDAZOLE 500 MG/100 ML BAG IV SCH (18:34)
[2018-12-08] MEDS ORDERED: OXYCODONE/ACETAMINOPHEN 10-325 TAB PO PRN (18:34)
[2018-12-08] MEDS ORDERED: ALUMINUM/MAGNESIUM SUSP 30 ML UDC PO PRN (18:34)
[2018-12-08] MEDS ORDERED: ACETAMINOPHEN 325 MG TAB PO PRN (18:34)
[2018-12-08] MEDS ORDERED: ONDANSETRON INJ 2 MG/ML 2 ML VIAL IV PRN (18:34)
[2018-12-08] MEDS ORDERED: PIPERACILL/TAZOBAC CONSULT ACTIVE PRN (18:34)
[2018-12-08] MEDS ORDERED: PIPERACILLIN/TAZOBACTAM 3.375 GM in DEXTROSE 5% 100 ML IV ONE (19:00)
[2018-12-08] MEDS ORDERED: NSS + 20MEQ KCL 20 MEQ/1,000 ML BAG IV SCH (19:00)
[2018-12-08] MEDS ORDERED: IOVERSOL 100ml IV PRN (19:56)
--- NOTE | 2018-12-08 19:59 | XRay Report ---
XR lumbar spine 2-3V CLINICAL HISTORY: low back pain COMPARISON STUDY: No previous studies for comparison. FINDINGS: Oral contrast is noted within the stomach and bowel. Alignment of the lumbar spine is anato anel. Vertebral body heights are maintained. There is mild multilevel endplate osteophytosis. Minimal disc space narrowing at L5-S1 is noted. No lumbar spine fracture is noted. IMPRESSION: 1. No lumbar spine fracture. 2. Mild multilevel osteophytosis within the lumbar spine. Electronically signed by: Arsh Barnhart M.D. 12/08/2018 7:58 PM
[2018-12-08] MEDS: ATORVASTATIN 20 MG TAB PO SCH (20:09)
[2018-12-08] MEDS: ASPIRIN 81 MG ECTAB PO SCH (20:09)
[2018-12-08] MEDS: NICOTINE 7 MG/24 HR TDSY TD SCH (20:09)
[2018-12-08] MEDS: METOPROLOL TARTRATE 1 MG/ML VIAL IV PRN (20:14)
--- NOTE | 2018-12-08 20:14 | CT Scan Report ---
CT OF THE ABDOMEN WITH CONTRAST CLINICAL HISTORY: Abdominal pain. Evaluate for cholangitis. COMPARISON STUDY: CT of the abdomen and pelvis September 27, 2014. Right upper quadrant ultrasound perform ed earlier today. TECHNIQUE: Following IV administration of 93 mL of Optiray-320, axial images of the abdomen were obta ined from the lung bases to the proximal femurs. Images were reviewed in the axial, sagittal, and cor onal planes. IV contrast was administered without complication. Automated exposure control was utili [employer] for the study. A dose lowering technique was utilized adhering to the principles of ALARA. Oral contrast was administered. CT DOSE: 241.67 mGy.cm FINDINGS: Lung bases are unremarkable. Fatty infiltration of the liver is noted. There is no biliary or pancreatic ductal dilatation. No peripancreatic or pericholecystic infiltration is noted. No radio paque stones within the gallbladder or common bile duct are identified. A borderline enlarged [place] lymph node is probably benign. There is no hydronephrosis. Nephrograms are symmetric. No pneumato sis, free air or portal venous gas is present. The appendix is normal. There is no ascites. No suspic ious osseous lesions are noted. IMPRESSION: 1. No acute process within the abdomen. 2. Fatty infiltration of the liver. 3. No biliary ductal dilatation. Electronically signed by: Arsh Barnhart M.D. 12/08/2018 8:13 PM
[2018-12-08] MEDS: METOPROLOL SUCC 25MG EXT REL TAB PO SCH (21:01)
[2018-12-08] MEDS ORDERED: METOPROLOL TARTRATE 1 MG/ML VIAL IV STA (21:44)
[2018-12-08] MEDS: FAMOTIDINE 20 MG in SYRINGE 3 ML IV SCH (21:57)
[2018-12-08] MEDS ORDERED: ACETAMINOPHEN 65 ML IV PRN (22:00)
[2018-12-08] MEDS: [UNRECOGNIZED DRUG - REMARK] SCH (23:05)
[2018-12-09] MEDS ORDERED: dilTIAZem HCl 5 MG/ML 5 ML VIAL IV STA (00:28)
[2018-12-09] MEDS: PIPERACILLIN/TAZOBACTAM 3.375 GM in DEXTROSE 5% 100 ML IV SCH ×2 (00:55→09:37)
[2018-12-09] MEDS: METOPROLOL TARTRATE 1 MG/ML VIAL IV PRN (04:08)
[2018-12-09 06:52] LABS: Hemoglobin 14.5 g/dL (14.0-18.0); Mean Corpuscular Hgb Conc 35.4 g/dL (32-36); Mean Corpuscular Volume 94.3 fL (80-100); RDW Standard Deviation 41.5 fL (36.4-46.3); Red Blood Count 4.35 M/uL (4.7-6.1)
[2018-12-09 06:58] LABS: Mean Platelet Volume 9.9 fL (7.4-10.4); Platelet Count 90 K/uL (130-400)
[2018-12-09 07:09] LABS: Basophils # (auto) 0.01 K/uL (0-0.2); Basophils % (auto) 0.1 %; Eosinophils # (auto) 0.21 K/uL (0-0.5); Eosinophils % (auto) 2.3 %; Immature Granulocytes # (auto) 0.02 K/uL (0.00-0.02); Immature Granulocytes % (auto) 0.2 %; Lymphocytes # (auto) 1.33 K/uL (1.2-3.4); Lymphocytes % (auto) 14.3 %; Monocytes % (auto) 11.8 %; Neutrophils # (auto) 6.63 K/uL (1.4-6.5); Neutrophils % (auto) 71.3 %
[2018-12-09 07:26] LABS: Albumin Level 3.6 gm/dl (3.4-5.0); Calcium 8.5 mg/dl (8.5-10.1); Creatinine Clr Calc Pharmacy 100.5 ml/min; Est GFR (Non-African American) 105.3; Magnesium 1.6 mg/dl (1.8-2.4); Potassium 2.6 mmol/L (3.5-5.1)
[2018-12-09 07:31] LABS: Albumin Globulin Ratio 0.9 (0.9-2); Bilirubin,Total 0.7 mg/dl (0.2-1); Total Protein 7.6 gm/dl (6.4-8.2)
[2018-12-09] MEDS: METOPROLOL SUCC 25MG EXT REL TAB PO SCH (07:51)
[2018-12-09] MEDS: ATORVASTATIN 20 MG TAB PO SCH (07:51)
[2018-12-09] MEDS: NICOTINE 7 MG/24 HR TDSY TD SCH (07:51)
[2018-12-09] MEDS: ASPIRIN 81 MG ECTAB PO SCH (07:51)
[2018-12-09] MEDS: [UNRECOGNIZED DRUG - REMARK] SCH (07:59)
[2018-12-09] MEDS ORDERED: ENOXAPARIN INJ 40 MG/0.4 ML SYR SQ SCH (09:00)
[2018-12-09] MEDS: FAMOTIDINE 20 MG in SYRINGE 3 ML IV SCH (09:37)
[2018-12-09] MEDS: POTASSIUM CHLORIDE 20 MEQ/15 ML UDC PO SCH ×2 (10:05→20:52)
[2018-12-09] MEDS: MAGNESIUM SULFATE / D5W 1 GM/100 ML BAG IV SCH ×2 (10:06→10:58)
--- NOTE | 2018-12-09 10:07 | Anesthesiology Consultation ---
Date of Service December 09, 2018 Assessment & Plan (1) Encounter for pre-operative examination: Chart Review Chart Review: Acceptable Risk for Surgery and Patient NOT seen in Pre Admission Testing Consults Requested none History Surgery Operation Date: 12/09/18 08:30 Proposed Procedures p Esophagogastroduodenoscopy Dr Sal Castle Height/Weight Height: 5 ft 6 in Weight: 72.8 kg Allergies Allergy/AdvReac Type Severity Reaction Status Date / Time No Known Allergies Allergy Unverified 12/08/18 15:00 Medications Home Medications Medication Instructions Recorded Confirmed Last Taken aspirin 81 mg PO QAM 12/08/18 12/08/18 12/08/18 atorvastatin 20 mg PO QAM 12/08/18 12/08/18 12/08/18 coenzyme Q10 [CoQ-10] 100 mg PO QAM 12/08/18 12/08/18 12/08/18 fenofibrate 160 mg PO QAM 12/08/18 12/08/18 12/08/18 metoprolol succinate 25 mg PO QAM 12/08/18 12/08/18 12/08/18 Active Medications Generic Name Dose Route Start Last Admin Trade Name Freq PRN Reason Stop Dose Admin Aspirin 81 mg 12/08/18 19:00 12/09/18 07:51 Ecotrin Ectab PO 01/07/19 18:59 81 mg QAM TOMAS Administration Atorvastatin Calcium 20 mg 12/08/18 19:00 12/09/18 07:51 Lipitor PO 01/07/19 18:59 20 mg QAM TOMAS Administration Enoxaparin Sodium 40 mg 12/09/18 09:00 12/09/18 07:51 Lovenox SQ 01/08/19 08:59 40 mg QAM TOMAS Administration Piperacillin Sod/Tazobactam 115 mls @ 28.75 mls/hr 12/09/18 02:00 12/09/18 09:37 Sod 3.375 gm/ Dextrose IV 12/11/18 01:59 28.8 mls/hr Q8H TOMAS Administration Protocol Famotidine 20 mg/ Syringe 5 mls @ 2.5 mls/min 12/08/18 21:00 12/09/18 09:37 IV 01/07/19 20:59 2.5 mls/min BID TOMAS Administration Potassium Chloride/Sodium Chloride 20 meq in 1,000 mls @ 100 mls/hr 12/08/18 19:00 12/08/18 20:49 Normal Saline W/20 Meq Kcl IV 01/07/19 18:59 Not Given .Q10H TOMAS Magnesium Sulfate/Dextrose 1 gm in 100 mls @ 100 mls/hr 12/09/18 09:15 12/09/18 10:06 Magnesium Sulfate / D5w IV 12/09/18 11:14 100 mls/hr Q1H TOMAS Administration Ioversol 93 ml 12/08/18 19:56 12/08/18 19:56 Optiray 320 100ml IV 12/12/18 19:55 93 ml ONCE PRN Administration Interaction Checking Metoprolol Succinate 25 mg 12/08/18 19:00 12/09/18 07:51 Toprol Xl PO 01/07/19 18:59 25 mg QAM TOMSA Administration Metoprolol Tartrate 5 mg 12/08/18 19:58 12/09/18 04:08 Lopressor IV 01/07/19 19:59 5 mg Q4 PRN Administration Hypertension Nicotine 7 mg 12/08/18 19:00 12/09/18 07:51 Nicoderm Cq TD 01/07/19 18:59 7 mg QAM TOMAS Administration Potassium Chloride 40 meq 12/09/18 09:00 12/09/18 10:05 Liyah Phillips Elix PO 12/09/18 21:01 40 meq BID TOMAS Administration Past Medical History Medical History Low back pain Hypertriglyceridemia Hypertension Nicotine dependence Alcohol dependence Abdominal pain, RUQ (Acute) Fever (Acute) Back pain (Resolved) HLD (hyperlipidemia) HTN (hypertension) Past Family History Family History Other Family history not known due to adoption Social History Smoking Status: Current every day smoker tobacco type: cigarettes Smoking cigarettes per day: 20 Do You Dip or Chew Tobacco: No Hx Alcohol Use: Yes Alcohol type: beer and hard liquor alcohol intake frequency: 3 or more drinks per day Hx Substance Use: No Physical Exam Vital Signs Last Vital Signs Temp 36.8 C 12/09/18 07:28 Pulse 82 12/09/18 08:00 Resp 18 12/09/18 07:28 BP 162/98 H 12/09/18 07:28 Pulse Ox 96 12/09/18 07:28 Testing Laboratory Results 12/09/18 06:26 12/09/18 06:26 PT 10.7 Seconds (9.0-12.0) 12/08/18 13:42 INR 1.0 (0.9-1.1) 12/08/18 13:42 APTT 26.6 Seconds (21.0-31.0) 12/08/18 13:42 Urine Color Yellow 12/08/18 Unknown Urine Appearance Clear (Clear) 12/08/18 Unknown Urine pH 5.5 (4.5-7.5) 12/08/18 Unknown Ur Specific Hanna 1.024 (1.000-1.030) 12/08/18 Unknown Urine Protein Negative (Negative) 12/08/18 Unknown Urine Glucose (UA) Negative (Negative) 12/08/18 Unknown Urine Ketones 1+ (Negative) H 12/08/18 Unknown Urine Nitrite Negative (Negative) 12/08/18 Unknown Ur Leukocyte Esterase Negative (Negative) 12/08/18 Unknown Electrocardiogram Date: 12/08/18 Findings: + ST @ (120) Sinus tachycardia with occasional Premature ventricular complexes, Possible Left atrial enlargement, Left ventricular hypertrophy, When compared with ECG of 07-NOV-2016 13:53, Premature ventricular complexes are now Present T wave inversion now evident in Inferior leads
--- NOTE | 2018-12-09 11:54 | Gastrointestinal Consultation ---
Date of Consultation December 09, 2018 Assessment & Plan (1) Abdominal pain: (2) Diarrhea: (3) Nausea & vomiting: Pt is a 48 y/o male seen for chronic diarrhea, worsening n/v, weight loss and abd pain symptoms. Abd imaging w xray, gallbladder u/s, CT w/o obstructive or inflammatory changes, no gallstones or biliary dilation. Though AST mildly up at 80s. He does drink quite a large amt of ETOH daily and smokes 1PPD. Wonder if symptoms related to ETOH intake, and gastritis vs infectious process given febrile. - Cdiff negative, awaiting stool cx, Hpylori stool; celiac serology; - DC Famotidine, start Protonix 40mg BID - Start Dicyclomine 10mg TID prn abd cramping, stool urgency - Zofran prn - CL diet - Recommend further evaluation w EGD/Colonoscopy to r/o PUD, gastritis, esophagitis, Hpylori, celiac disease, IBD vs microscopic colitis; But may need to be likely done in outpt setting as need hypokalemia correction and symptoms management otherwise. Attg add: I interviewed and examined pt, reviewed chart and labs. Pt with heavy alcohol, heavy tob, now with 2 weeks of frequent n/v and diffuse abd pain. He has had diff graham PO due to vomiting. His BM's are chornically loose and frequent; over the past 2 days, his BM's have been more liquid and more frequent. Today he feels well, without nausea. His exam is unremarkable. On admission, he was febrile, WBC 12K, mildly increased LFTs, normal lipase. Uls showed borderline lyly dil and no stones; CT was unremarkable. Denies NSAIDs. Cause of symptoms unclear; differential is broad, and includes stones/biliary pathology; acid-peptic disease; alcoholic gastritis; occult pancreatic pathology; intermittent obstruction. Infectious gastroenteritis may be possible as well. Will plan EGD tomorrow if K is corrected. History of Present Illness Reason for Consultation: Abd pain, n/v Requesting Physician: Dr. Kehinde Boucher Attending Physician: Dr. Dedrick Castle History of Present Illness Pt i s a 48 y/o male w PMHx of hyperlipidemia, HTN, chronic back pain, who presented to ED w c/o worsening n/v within last month, lost about 10 lbs in last 2-3 months. He has associated diarrhea for years however the n/v is new. Said as soon as he eats, he would need to defecate. Denies any hematemesis, or dark tarry stools, rectal bleeding. Denies any food triggers. Did travel to [facility] in November but said symptoms started prior. Denies sick contact or antibx exposure. He did spike a fever last night 38.6, WBC up to 12, currently on Zosyn IV. On eval, labs notable for hypokalemia 2.6 this AM. LFTs w mild AST elevation in 80s, normal lipase. Abdominal imaging w xray, gallbladder u/s and CT showed no signs of obstruction/inflammatory processes. He does have signs of fatty liver, and initially slight prominence of CBD 6mm on u/s but normal on CT. No gallstones. He smokes 1PPD, and drinks up to 6 vodka mixed drinks daily plus 2-3 beers sometimes. Denies marijuana or illicit drugs. Denies NSAIDs. Unknown family hx due to him being adopted. Never had any endoscopic evals before. Allergies Allergy/AdvReac Type Severity Reaction Status Date / Time No Known Allergies Allergy Unverified 12/08/18 15:00 Home Medications Home Medications Medication Instructions Recorded Confirmed Type aspirin 81 mg PO QAM 12/08/18 12/08/18 History atorvastatin 20 mg PO QAM 12/08/18 12/08/18 History coenzyme Q10 [CoQ-10] 100 mg PO QAM 12/08/18 12/08/18 History fenofibrate 160 mg PO QAM 12/08/18 12/08/18 History metoprolol succinate 25 mg PO QAM 12/08/18 12/08/18 History Patient History Medical History Low back pain Hypertriglyceridemia Hypertension Nicotine dependence Alcohol dependence Abdominal pain, RUQ (Acute) Fever (Acute) Back pain (Resolved) HLD (hyperlipidemia) HTN (hypertension) Family History Other Family history not known due to adoption Social History Preferred Language: Yi Communication Ability: Effective 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 Beliefs That Will Affect Care: None marital status: Current Living Situation: Spouse current occupational status: employed Other Information That Helps Us Care for You: No Feels Safe at Home: Yes Safety Concerns: Feels Safe At This Time Smoking Status: Current every day smoker Tobacco Type: cigarettes ; Cigarettes Per Day: 20 ; Do You Dip or Chew Tobacco: No ; Tobacco Cessation Education Requested by Patient: No Hx Alcohol Use: Yes Alcohol type: beer and hard liquor Hx Substance Use: No Review of Systems Review of Systems: All systems reviewed & are unremarkable except as noted in HPI & below Physical Exam Constitutional: WD/WN, vitals as above well groomed, cooperative and comfortable Eyes: PERRL, conjunctivae normal, anicteric sclerae ENMT: external ear and nose normal, oropharynx normal Respiratory: normal respiratory effort, lungs clear to auscultation Cardiovascular: RRR, no murmur, no edema Gastrointestinal (Abdomen): normal bowel sounds, soft, nontender, no hepatosplenomegaly Skin: no rashes, warm and dry no jaundice Neurologic: Motor/Sensory: no asterixis Psychiatric: A+Ox3, euthymic affect Lymphatic: no lymphedema Results & Data Vital Signs (Past 12 Hours) Vital Signs Temp Pulse Pulse Resp BP BP BP 12/09/18 11:39 37.0 C 74 18 159/66 H 12/09/18 08:00 82 12/09/18 07:28 36.8 C 76 18 162/98 H 12/09/18 04:57 79 160/101 H 12/09/18 04:08 83 157/119 H 12/09/18 03:53 37.4 C 77 15 171/109 H 157/119 H 12/09/18 02:36 82 156/102 H 12/09/18 01:20 80 164/108 H 178/113 H Pulse Ox 12/09/18 11:39 99 12/09/18 08:00 12/09/18 07:28 96 12/09/18 04:57 12/09/18 04:08 12/09/18 03:53 98 12/09/18 02:36 12/09/18 01:20
[2018-12-09] MEDS ORDERED: DICYCLOMINE HCL 10 MG CAP PO PRN (11:59)
[2018-12-09] MEDS: PANTOprazole 40 MG TAB PO SCH ×2 (12:41→20:53)
--- NOTE | 2018-12-09 13:20 | Hospitalist Progress Note ---
Date of Service December 09, 2018 Assessment & Plan (1) Abdominal pain, RUQ: Pt presented with abdominal pain, nausea, and vomiting. CT abdomen pelvis with contrast did not confirm any significant pathology. Ultrasound of the right upper quadrant also did not confirm any significant pathology except for fatty liver. - Patient recommended to stop drinking alcohol and smoking. Offered nicotine patch which he accepted. - PPI BID - Initially on Zosyn, but stopped on 12/09 for no clear bacterial infection. - Zofran PRN - Clear liquid diet (2) Back pain: Chest x-rays of the lumbar spine shows the followin. No lumbar spine fracture. 2. Mild multilevel osteophytosis within the lumbar spine. - Continue pain management - Refer as outpatient to physical therapy and Ortho for further evaluation and treatment (3) Alcohol dependence: Recommended to cut down on alcoholic beverage. Patient appears unaware of his situation and drinking too much. - Monitor for signs/symptoms of alcohol withdrawal (4) Hypertension: BP consistently elevated in the hospital up to 180/120. Echo on 12/09 showed normal EF; Grade I diastolic dysfunction. - Continue metoprolol XL 25mg - Continue ASA 81 - Add amlodipine (5) Hypertriglyceridemia: Will check fasting lipids in a.m. - Continue atorvastatin. Fenofibrate not in formulary; can restart on discharge. (6) Nicotine dependence: Recommended to quit. - Nicotine patch (7) DVT prophylaxis: Lovenox 40mg Subjective Less nausea and less abdominal pain; however, now having diarrhea. Review of Systems Review of Systems: All systems reviewed & are unremarkable except as noted in HPI & below Physical Exam Constitutional: WD/WN, vitals as above well developed and well nourished Eyes: PERRL, conjunctivae normal, anicteric sclerae normal visual garcia by confrontation ENMT: external ear and nose normal, oropharynx normal Neck: trachea midline, no thyromegaly Respiratory: normal respiratory effort, lungs clear to auscultation Cardiovascular: RRR, no murmur, no edema Chest (Breasts): normal inspection/palpation of breasts Gastrointestinal (Abdomen): Inspection/Auscultation: abdomen normal to inspection, + abdomen distended and normal bowel sounds Musculoskeletal: no cyanosis or clubbing, extremities motor strength 5/5 Skin: no rashes, warm and dry Neurologic: patellar DTR's 2+ bilat, sensation intact Psychiatric: A+Ox3, euthymic affect Genitourinary: no testicular masses, no penis abnormality Lymphatic: no cervical or axillary lymphadenopathy Results & Data Vital Signs (Past 12 Hours) Vital Signs Temp Pulse Pulse Resp BP BP BP 12/09/18 11:39 37.0 C 74 18 159/66 H 12/09/18 08:00 82 12/09/18 07:28 36.8 C 76 18 162/98 H 12/09/18 04:57 79 160/101 H 12/09/18 04:08 83 157/119 H 12/09/18 03:53 37.4 C 77 15 171/109 H 157/119 H 12/09/18 02:36 82 156/102 H 12/09/18 01:20 80 164/108 H 178/113 H Pulse Ox 12/09/18 11:39 99 12/09/18 08:00 12/09/18 07:28 96 12/09/18 04:57 12/09/18 04:08 12/09/18 03:53 98 12/09/18 02:36 12/09/18 01:20 PG Care Time/CCT Total # of Minutes Spent Total Time Spent with Patient: Total time spent is greater than 50% in coordination of care (as documented) at patient's floor/unit and/or counseling patient:
[2018-12-09] MEDS: AMLODIPINE BESYLATE 5 MG TAB PO SCH (13:55)
[2018-12-09] MEDS: NICOTINE 21 MG/24 HR TDSY TD SCH (20:53)
[2018-12-10 05:32] LABS: Hematocrit (blood only) 41.7 % (42-52); Hemoglobin 14.6 g/dL (14.0-18.0); Mean Corpuscular Volume 94.8 fL (80-100); RDW Standard Deviation 41.1 fL (36.4-46.3); White Blood Count 6.28 K/uL (4.8-10.8)
[2018-12-10 05:46] LABS: Platelet Count 81 K/uL (130-400)
[2018-12-10 05:56] LABS: Basophils # (auto) 0.02 K/uL (0-0.2); Basophils % (auto) 0.3 %; Eosinophils # (auto) 0.23 K/uL (0-0.5); Eosinophils % (auto) 3.7 %; Immature Granulocytes # (auto) 0.02 K/uL (0.00-0.02); Immature Granulocytes % (auto) 0.3 %; Lymphocytes % (auto) 22.3 %; Monocytes # (auto) 0.85 K/uL (0.11-0.59); Monocytes % (auto) 13.5 %; Neutrophils # (auto) 3.76 K/uL (1.4-6.5); Neutrophils % (auto) 59.9 %; RBC Morphology Unremarkable
[2018-12-10 06:07] LABS: Albumin Globulin Ratio 0.9 (0.9-2); Albumin Level 3.6 gm/dl (3.4-5.0); BUN Creatinine Ratio 6.6 (10-20); Bilirubin,Total 0.7 mg/dl (0.2-1); Calcium 8.4 mg/dl (8.5-10.1); Creatinine Clr Calc Pharmacy 105.7 ml/min; Est GFR (African American) 124.6; Est GFR (Non-African American) 107.5; Globulin 3.9 gm/dl (2.5-4.0); Magnesium 2.4 mg/dl (1.8-2.4); Potassium 3.3 mmol/L (3.5-5.1); Total Protein 7.5 gm/dl (6.4-8.2)
[2018-12-10 07:47] VITALS: TEMP 98.2
[2018-12-10] MEDS ORDERED: FENOFIBRATE NANOCRYSTALLIZED 145 MG TABLET PO SCH (09:00)
[2018-12-10] MEDS ORDERED: POTASSIUM CHLORIDE 20 MEQ/15 ML UDC PO SCH (09:00)
[2018-12-10] MEDS: PANTOprazole 40 MG TAB PO SCH (09:34)
[2018-12-10] MEDS: AMLODIPINE BESYLATE 5 MG TAB PO SCH (09:35)
[2018-12-10] MEDS: NICOTINE 21 MG/24 HR TDSY TD SCH (09:35)
[2018-12-10] MEDS: ASPIRIN 81 MG ECTAB PO SCH (09:35)
[2018-12-10] MEDS: ATORVASTATIN 20 MG TAB PO SCH (09:35)
[2018-12-10] MEDS: METOPROLOL SUCC 25MG EXT REL TAB PO SCH (09:35)
[2018-12-10] MEDS ORDERED: PROPOFOL IV EMULSION 10 MG/ML 20 ML VIAL IV ONE ×2 (10:29→11:37)
[2018-12-10] MEDS ORDERED: LIDOCAINE HCL 2% 2 ML VIAL/AMP(20MG/ML) INFIL ONE (10:29)
--- NOTE | 2018-12-10 10:35 | History & Physical Bridge Note ---
Date of Service December 10, 2018 History & Physical Bridge Note I have examined the patient, reviewed the History & Physical and in the interval since the performance of the History & Physical I have noted the following changes of clinical significance: no changes noted Pt reports nausea and abd pain is improved. But having loose stools still. Had been NPO in anticipation for EGD eval today VS, labs reviewed. Exam: - AAOx3, in NAD - CTA bilateral lungs - HRR regular, no murmur or gallops - Abd soft, mild TTP along R side abd area, hypoactive bowel sounds - No edema on bilateral LE GI will give further recs after EGD is completed Attg add: I interviewed and examined pt, reviewed chart and labs. Pt reports improvement in n.v, Plan EGD today.
--- NOTE | 2018-12-10 10:42 | Anesthesiology Consultation ---
Date of Service December 10, 2018 Assessment & Plan (1) Encounter for pre-operative examination: History Surgery Operation Date: 12/09/18 08:30 Proposed Procedures p Esophagogastroduodenoscopy Dr Sal Castle Operation Date: 12/10/18 08:30 Proposed Procedures p Esophagogastroduodenoscopy Dr Sal Castle Height/Weight Height: 5 ft 6 in Weight: 72.5 kg Allergies Allergy/AdvReac Type Severity Reaction Status Date / Time No Known Allergies Allergy Unverified 12/08/18 15:00 Medications Home Medications Medication Instructions Recorded Confirmed Last Taken aspirin 81 mg PO QAM 12/08/18 12/08/18 12/08/18 atorvastatin 20 mg PO QAM 12/08/18 12/08/18 12/08/18 coenzyme Q10 [CoQ-10] 100 mg PO QAM 12/08/18 12/08/18 12/08/18 fenofibrate 160 mg PO QAM 12/08/18 12/08/18 12/08/18 metoprolol succinate 25 mg PO QAM 12/08/18 12/08/18 12/08/18 Active Medications Generic Name Dose Route Start Last Admin Trade Name Freq PRN Reason Stop Dose Admin Amlodipine Besylate 5 mg 12/09/18 13:30 12/10/18 09:35 Norvasc PO 01/08/19 13:29 5 mg QAM TOMAS Administration Aspirin 81 mg 12/08/18 19:00 12/10/18 09:35 Ecotrin Ectab PO 01/07/19 18:59 81 mg QAM TOMAS Administration Atorvastatin Calcium 20 mg 12/08/18 19:00 12/10/18 09:35 Lipitor PO 01/07/19 18:59 20 mg QAM TOMAS Administration Enoxaparin Sodium 40 mg 12/09/18 09:00 12/09/18 07:51 Lovenox SQ 01/08/19 08:59 40 mg QAM TOMAS Administration Fenofibrate 145 mg 12/10/18 09:00 12/10/18 09:36 Tricor PO 01/09/19 08:59 145 mg DAILY TOMAS Administration Metoprolol Succinate 25 mg 12/08/18 19:00 12/10/18 09:35 Toprol Xl PO 01/07/19 18:59 25 mg QAM TOMAS Administration Metoprolol Tartrate 5 mg 12/08/18 19:58 12/09/18 04:08 Lopressor IV 01/07/19 19:59 5 mg Q4 PRN Administration Hypertension Miscellaneous 1 ea 12/09/18 21:00 12/09/18 20:54 Remove Nicoderm Patch N/A 01/08/19 20:59 1 ea HS TOMAS Administration Nicotine 21 mg 12/09/18 19:00 12/10/18 09:35 Nicoderm Cq TD 01/08/19 18:59 21 mg QAM TOMAS Administration Pantoprazole Sodium 40 mg 12/09/18 12:00 12/10/18 09:34 Protonix PO 01/08/19 11:59 40 mg BID TOMAS Administration Potassium Chloride 20 meq 12/10/18 09:00 12/10/18 09:34 Liyah Ciel Elix PO 12/10/18 21:01 20 meq BID TOMAS Administration Past Medical History Medical History Low back pain Hypertriglyceridemia Hypertension Nicotine dependence Alcohol dependence Abdominal pain, RUQ (Acute) Back pain (Resolved) HLD (hyperlipidemia) HTN (hypertension) Past Family History Family History Other Family history not known due to adoption Social History Smoking Status: Current every day smoker tobacco type: cigarettes Smoking cigarettes per day: 20 Do You Dip or Chew Tobacco: No Hx Alcohol Use: Yes Alcohol type: beer and hard liquor alcohol intake frequency: 3 or more drinks per day Hx Substance Use: No Physical Exam Vital Signs Last Vital Signs Temp 36.8 C 12/10/18 07:46 Pulse 87 12/10/18 07:49 Resp 20 12/10/18 07:46 BP 145/95 H 12/10/18 07:46 Pulse Ox 96 12/10/18 07:46 Testing Laboratory Results 12/10/18 05:23 12/10/18 05:23 PT 10.7 Seconds (9.0-12.0) 12/08/18 13:42 INR 1.0 (0.9-1.1) 12/08/18 13:42 APTT 26.6 Seconds (21.0-31.0) 12/08/18 13:42 Urine Color Yellow 12/08/18 Unknown Urine Appearance Clear (Clear) 12/08/18 Unknown Urine pH 5.5 (4.5-7.5) 12/08/18 Unknown Ur Specific Rodman 1.024 (1.000-1.030) 12/08/18 Unknown Urine Protein Negative (Negative) 12/08/18 Unknown Urine Glucose (UA) Negative (Negative) 12/08/18 Unknown Urine Ketones 1+ (Negative) H 12/08/18 Unknown Urine Nitrite Negative (Negative) 12/08/18 Unknown Ur Leukocyte Esterase Negative (Negative) 12/08/18 Unknown 12/08/18 21:09 Escherichia coli Shiga Toxins Test - Preliminary Stool Stool Culture - Preliminary No Salmonella isolated to date, No Shigella isolated to date, No Campylobacter jejuni isolated to date. 12/09/18 17:25 WBC Smear - Final Stool 12/08/18 13:33 Aerobic Blood Culture - Preliminary Blood No growth in Aerobic bottle after 24 hours. Anaerobic Blood Culture - Preliminary No growth in Anaerobic bottle after 24 hours. 12/08/18 13:42 Aerobic Blood Culture - Preliminary Blood No growth in Aerobic bottle after 24 hours. Anaerobic Blood Culture - Preliminary No growth in Anaerobic bottle after 24 hours.
--- NOTE | 2018-12-10 11:43 | GI REPORT ---
Patient Name: Zelalem Price Procedure Date: 12/10/2018 11:03 AM Date of : 1970 Admit Type: Inpatient Age: 48 Gender: Male Attending MD: Dedrick Castle MD Procedure: Upper GI endoscopy Providers: Dedrick Castle MD Referring MD: Yash Hunter Indications: Nausea with vomiting Medicines: See the Anesthesia note for documentation of the administered medications Complications: No immediate complications. Estimated Blood Loss: Estimated blood loss: none. Procedure: Pre-Anesthesia Assessment: - ASA Grade Assessment: III - A patient with severe systemic disease. After obtaining informed consent, the endoscope was passed under direct vision. Throughout the procedure, the patient's blood pressure, pulse, and oxygen saturations were monitored continuously. The Scope was introduced through the mouth, and advanced to the second part of duodenum. The upper GI endoscopy was accomplished without difficulty. The patient tolerated the procedure well. Findings: The examined esophagus was normal. Multiple localized, non-bleeding erosions were found in the gastric antrum. There were no stigmata of recent bleeding. The exam of the stomach was otherwise normal. Biopsies were taken with a cold forceps in the entire examined stomach for histology. Patchy mildly erythematous mucosa and with no stigmata of bleeding was found in the duodenal bulb. Biopsies were taken with a cold forceps in the entire duodenum for histology. Impression: - Antral erosive gastritis, duodenitis. Suspect injury related to alcohol, tobacco use. Recommendation: - Discharge patient to floor. Begin full liquids, adv diet as graham. BID PPI. Deidre Meyers MD 12/10/2018 11:42:55 AM This report has been signed electronically. Note Initiated On: 12/10/2018 11:03 AM Number of Addenda: 0 I attest to the content of the Intraoperative Record and orders documented therein, exceptions below {[id number]}
--- NOTE | 2018-12-10 12:39 | Anesthesiology Progress Note ---
Date of Service December 10, 2018 Anesthesia Post Procedure Vital Signs Vital Signs: Temp Pulse Pulse Resp BP BP Pulse Ox 12/10/18 12:08 84 20 136/100 97 12/10/18 11:56 97 H 18 128/94 97 12/10/18 11:43 98 H 18 107/80 98 12/10/18 10:57 141/99 H 12/10/18 10:42 36.8 C 95 H 18 157/115 H 99 12/10/18 07:49 87 12/10/18 07:46 36.8 C 88 20 145/95 H 96 12/10/18 03:08 37.3 C 84 18 156/108 H 149/105 H 100 12/10/18 00:00 93 H 12/09/18 23:33 37.3 C 92 H 18 140/98 100 12/09/18 19:04 36.8 C 90 19 153/113 H 100 Pain Intensity Lower Back: Pain Intensity: 2 Head: Pain Intensity: 4 Transfer of Care Handoff Completed per policy Notes Mental Status: alert / awake / arousable and participated in evaluation Patient Amnestic to Procedure: Yes Nausea / Vomiting: adequately controlled Pain: adequately controlled Airway Patency, RR, SpO2: stable & adequate BP & HR: stable & adequate Hydration State: stable & adequate Anesthetic Complications: no major complications apparent and Pt Satisfied with anesthetic care
[2018-12-10 13:34] VITALS: O2SAT 99
[2018-12-10 14:59] VITALS: BP 136/100; PULSE 87
--- NOTE | 2018-12-11 14:07 | Discharge Summary ---
Date of Service December 10, 2018 Admission HPI Per Admitting Provider Patient is 48 years old male with past medical history of hyperlipidemia, nicotine dependence, chronic back pain, presented to the emergency room with a complaint of abdominal discomfort nausea and vomiting for 1 months or possibly longer. Patient said that condition is ongoing and on occasion he vomits all food content. Patient denies any blood in vomit. Patient said that he drinks up approximately 4-6 hard drinks per day and 2-3 beers per day. Patient does not consider himself or being alcoholic nor having any problems with alcohol. Patient also admits nicotine dependence and smokes approximately 1 pack/day. Patient has had nausea and vomiting became more severe yesterday and today and that was the reason he presented to the emergency room as well as DT could not keep any food down. Patient is reports that it is okay when he is fasting but the pain starts as soon as he eats. Patient denies any blood in stool any dark blood any shortness of breath. Other than this patient reports being in good h ealth. Patient said that nothing alleviate alleviated his symptoms. Patient is concerned about low back pain but said that this issue has been ongoing for some time. Patient also reports having low-grade fever which was subjective and he then measured. In the ER his temperature was 38.1. His white blood cell count was also elevated to 12.37, his magnesium was 1.7, his platelets are 96, his so dium is 140, his potassium is 3, his AST is 84, and his ALT is 66, his creatinine is 0.76, his GFR is over 108. Patient direct bili is 0.2 and total bili is 0.6 which is normal. Ultrasound of the right upper quadrant was done and showed 1. No cholelithiasis or evidence of cholecystitis. 2. Borderline extrahepatic biliary ductal prominence. This is nonspecific. Choledocholithiasis considered unlikely. Correlate clinically to exclude ascending cholangitis. 3. Hepatic steatosis. Correlate with liver function tests to exclude steatohepatitis as a cause for abdominal pain. Decision was made to admit pt to the medicine for observation and GI is consulted. The case was discussed with Dr. Tin ANDERSON and he will evaluate pt in am. -CT abdomen and pelvis with IV and PO contrast did not show any significant pathology: -Lung bases are unremarkable. Fatty infiltration of the liver is noted. There is no biliary or pancreatic ductal dilatation. No peripancreatic or pericholecystic infiltration is noted. No radiopaque stones within the gallbladder or common bile duct are identified. A borderline enlarged portacaval lymph node is probably benign. There is no hydronephrosis. Nephrograms are symmetric. No pneumatosis, free air or portal venous gas is present. The appendix is normal. There is no ascites. No suspicious osseous lesions are noted. IMPRESSION: 1. No acute process within the abdomen. 2. Fatty infiltration of the liver. 3. No biliary ductal dilatation. Pt has elevated AST 84 and admits drinking 4-5 hard liquor drinks per day with several beers daily. Pt also smokes 1 ppd. Principal Diagnosis Alcoholic gastritis Discharge Exam Constitutional WD/WN, vitals as above well developed and well nourished Eyes PERRL, conjunctivae normal, anicteric sclerae normal visual garcia by confrontation ENMT external ear and nose normal, oropharynx normal Neck trachea midline, no thyromegaly Respiratory normal respiratory effort, lungs clear to auscultation Cardiovascular RRR, no murmur, no edema Chest (Breasts) normal inspection/palpation of breasts Gastrointestinal (Abdomen) Inspection/Auscultation: abdomen normal to inspection and normal bowel sounds; abdomen not distended Percussion/Palpation: + abdomen tender (Mild general tenderness) and abdomen soft Musculoskeletal no cyanosis or clubbing, extremities motor strength 5/5 Skin no rashes, warm and dry Neurologic patellar DTR's 2+ bilat, sensation intact Psychiatric A+Ox3, euthymic affect Genitourinary no testicular masses, no penis abnormality Lymphatic no cervical or axillary lymphadenopathy Discharge Data Allergies Allergy/AdvReac Type Severity Reaction Status Date / Time No Known Allergies Allergy Unverified 12/08/18 15:00 Consultations 12/08/18 16:07 ED Decision to Admit Stat 12/08/18 18:06 Consult Gastroenterology Stat Procedures Performed Operation Date: 12/09/18 08:30 <No data on this case meets the specified criteria> Operation Date: 12/10/18 08:30 Actual Procedures p EGD Biopsy Dilatation - Irphan E Gaslightwala Ordered Studies 12/08/18 13:22 US gallbladder Stat 12/08/18 18:34 CT abdomen oral and IV con Stat Hospital Course (1) Abdominal pain, RUQ: Pt presented with abdominal pain, nausea, and vomiting. CT abdomen pelvis with contrast did not confirm any significant pathology. Ultrasound of the right upper quadrant also did not confirm any significant pathology except for fatty liver. - Patient recommended to stop drinking alcohol and smoking. Offered nicotine patch which he accepted. - Initially on Zosyn, but stopped on 12/09 for no clear bacterial infection. - EGD on 12/10 showed multiple erosions in the stomach and duodenum. GI felt this was caused by his alcohol consumption and possibly worsened by tobacco use. He was counseled multiple times on safe drinking habits and encourage to abstain entirely for at least a month. Also recommended to stop his aspirin for at least 1 month. - PPI BID x 1 month. - GI follow up if diarrhea continues. (2) Back pain: Chest x-rays of the lumbar spine shows the followin. No lumbar spine fracture. 2. Mild multilevel osteophytosis within the lumbar spine. - No major inpatient needs. - Outpatient referrals to ortho and/or pain management if needed (3) Alcohol dependence: Recommended to cut down on alcoholic beverage. - No signs/symptoms of alcohol withdrawal (4) Hypertension: BP consistently elevated in the hospital up to 180/120. Echo on 12/09 showed normal EF; Grade I diastolic dysfunction. - Continue metoprolol XL 25mg - Held ASA 81 on discharge to promote healing - BP was elevated in the hospital; however, he was under stress and in pain. No medication was started on discharge, but he may need another HTN agent. Stopping drinking and smoking should also improve his BP. Office monitoring. (5) Hypertriglyceridemia: Will check fasting lipids in a.m. - Continue atorvastatin. Fenofibrate not in formulary; can restart on discharge. (6) Nicotine dependence: Recommended to quit. - Nicotine patch (7) DVT prophylaxis: Lovenox 40mg Total Time Total Time Spent Total Time Spent (In Minutes): 35 Discharge Plan Discharge Items Patient Disposition: Home - Self-Care Reason For Visit: ABD PAIN,NAUSEA AND VOMITING Discharge Diagnosis: Alcoholic gastritis (stomach irritation) Discharge Goals: Decrease discomfort, Diagnostic testing and Improve function Activity: Resume your previous activity Non-emergency contact: Primary Care Provider and [employer] Cook Call non-emergency contact if: your symptoms worsen, your pain is not controlled and your temperature is above 101 Follow-up/Referrals: Dedrick Castle [Physician] - (Please call their office for follow up.) Yash Hunter [Primary Care Provider] - 12/15/18 7:30 am (Please, follow up with Dr. Hunter on FridayDecember 15 at 7:30 am. *If you need to change this appointment, call the office at [phone].) Diet: Regular Addtl Provider Instructions: Mr. Price, You were admitted to the hospital with abdominal pain, nausea, vomiting, and also then with diarrhea. The GI doctors did an EGD (scope of the esophagus, stomach, and small intestine) that showed irritation of the lining of the stomach and intestine. This is likely from alcohol and worsened somewhat by tobacco use. The GI doctors are having you take a Nexium 2 times per day to help lower the acid level in the stomach. Please do this for 1 month, then take the Nexium 1 time per day. Please abstain from alcohol for at least a month, and then stick with 2 drinks per day or less. 1 drink = 12oz of normal ABV beer, 4.5 oz of wine, or 1.5 oz of liquor. You should drink 14 drinks/wk or ideally less. Please hold your aspirin for the next month until you give your stomach time to heal. You can restart it at that time, though talk with your PCP before you do because you may not need it. Please follow up with the GI doctors in 1-2 weeks. Prescriptions: New nicotine [Nicoderm CQ] 21 mg/24 hr Patch 24 Hour 21 mg transdermal QAM Qty: 30 RF: 0 loperamide [Imodium A-D] 2 mg capsule 2 mg PO Q3H PRN (Reason: loose stool) Qty: 20 RF: 0 esomeprazole magnesium [Nexium] 40 mg capsule,delayed release(DR/EC) 40 mg PO BID Qty: 20 RF: 0 Continued atorvastatin 20 mg tablet 20 mg PO QAM RF: 0 metoprolol succinate 25 mg tablet extended release 24 hr 25 mg PO QAM RF: 0 coenzyme Q10 [CoQ-10] 100 mg Capsule 100 mg PO QAM RF: 0 fenofibrate 160 mg tablet 160 mg PO QAM RF: 0 Discontinued aspirin 81 mg Tablet,Delayed Release (Dr/Ec) 81 mg PO QAM RF: 0 Stand-Alone Forms: [facility] Discharge Orders: Discharge Order (Routine); Ordered 12/10/18 Ordered By: Kehinde Boucher Admission Data Admit Date/Time: 12/08/18 17:49 Attending Provider: Kehinde Boucher Admit Provider: Rosario Odonnell Primary Care Provider: Yash Hunter Other Providers: Dedrick Castle ; Kehinde Boucher Service: Medical Other Interventions: Discharge Summary Assessment (RN) Last Done: 12/10/18 14:57 DC Date/Time DO NOT enter until pt leaves facility: 12/10/18 15:23
== END 2018-12-10 15:23 | disposition home or self-care (01) ==
LOC: 2W 13:08 → ED 13:08 → SUATTDRO 17:49 → 2W 18:25 → 2S 20:18